=== PATIENT | female | born 1935 | race Caucasian/White ===

== ENCOUNTER 2017-01-17 10:34 | Inpatient (IN) ==
--- NOTE | 2017-01-17 10:43 | Emergency Department Note ---
Disposition Clinical Impression: Diplopia Disposition: Admitted As Inpatient Condition: Fair Referrals: Chris Quinteros MD [Primary Care Provider] - Forms: ED Satisfaction Letter Time of Disposition: 12:13 Neuro HPI - General Chief Complaint: ED Eye Problems Stated Complaint: Blurry Vision Time Seen by Provider: 01/17/17 10:36 Source: patient, EMS Mode of arrival: EMS Limitations: no limitations Nursing Notes Reviewed: Yes Vital Signs Reviewed: Yes - History of Present Illness HPI Narrative: 81-year-old who developed acute onset of double vision this morning. The patient states he takes a number of different medications every day. She denies any pain anywhere she denies any decreased vision is just that when she uses both eyes she has double vision. She covers each eye she does not have double vision. Onset of Symptoms Date: 01/17/17 Onset of Symptoms Time: 09:00 Timing confirmed by: caregiver Location: other History of same: No Severity: moderate Quality: other (Double vision) Symptoms Improving: No Improves with: none Worsens with: none Context: sudden onset On Anticoagulants: No Associated symptoms: Reports: denies other symptoms Treatments Prior to Arrival: none - Related Data Home Medications: Home Medications Medication Instructions Recorded Confirmed ALPRAZolam [Xanax 0.25 MG Tablet] 0.25 mg PO HS 01/17/17 01/17/17 Aspirin [Lo-Dose Aspirin EC] 81 mg PO DAILY 01/17/17 01/17/17 Atenolol [Tenormin] 25 mg PO DAILY 01/17/17 01/17/17 Diltiazem CD (24hr) [Cardizem CD] 120 mg PO QPM 01/17/17 01/17/17 Escitalopram [Lexapro] 10 mg PO DAILY 01/17/17 01/17/17 Furosemide [Lasix] 40 mg PO BID 01/17/17 01/17/17 HYDROcodone/Acet 5/325 mg [[place] 1 tab PO Q6H PRN 01/17/17 01/17/17 5-325 mg] Isosorbide MONOnitrate (24 HR) 30 mg PO DAILY 01/17/17 01/17/17 [Imdur] Omeprazole [PriLOSEC] 20 mg PO BIDAC 01/17/17 01/17/17 Oxybutynin [Ditropan] 5 mg PO TID 01/17/17 01/17/17 Potassium Chloride [Klor-Con 10] 10 meq PO BID 01/17/17 01/17/17 Sucralfate [Carafate] 1 gm PO BID 01/17/17 01/17/17 Warfarin [Coumadin] 4 mg PO DAILY 01/17/17 01/17/17 traZODone [TraZODone] 50 mg PO HS 01/17/17 01/17/17 Allergies/Adverse Reactions: Allergies Allergy/AdvReac Type Severity Reaction Status Date / Time Sulfa (Sulfonamide Allergy Blister Verified 01/17/17 12:53 Antibiotics) codeine AdvReac Hallucinati Verified 01/17/17 12:54 ng morphine AdvReac Hallucinati Verified 01/17/17 12:54 ng Oxycodone AdvReac Hallucinati Verified 01/17/17 12:53 ng Past Medical History - Past Medical History Medical history: Reports: arthritis (Osteoarthritis; DDD of lower back), atrial fibrillation (Paroxysmal atrial fibrillation; +Right Bundle Branch Block; Hx of Peptic Ulcer Disease), CHF, COPD (with home O2), coronary artery disease, GERD, hyperlipidemia, hypertension (+ Pulmonary Hypertension), myocardial infarction, 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 Patient's NIH stroke scale was 0. CT scans negative. Patient does have a hole in her heart is on Coumadin and also has a pacemaker and cannot have an MRI. Sedation obtained with neurology who recommends a CTA of the in head neck. Patient is not a TPA candidate is on Coumadin with an INR 1.7. Also patient does not meet TPA criteria based on NIH stroke scale. Time: 12:14 - Consultations Consultation #1: Discussed with carlos Cherry. Time: 13:09 Vital Signs Temperature 98.2 F 01/17/17 10:35 Pulse Rate 83 11/17/17 10:35 Respiratory Rate 20 01/17/17 10:35 Blood Pressure 136/80 01/17/17 10:35 O2 Sat by Pulse Oximetry 94 01/17/17 10:35 Temperature 98.2 F 01/17/17 10:35 Pulse Rate 81 01/17/17 12:23 Respiratory Rate 14 01/17/17 12:23 Blood Pressure 124/64 01/17/17 12:23 O2 Sat by Pulse Oximetry 92 01/17/17 12:23 Oxygen Delivery Oxygen Delivery Nasal Cannula Neuro Symptoms/Deficit - Lab Data Result diagrams: 01/17/17 10:47 01/17/17 10:47 Lab Results 01/17/17 01/17/17 01/17/17 Range/Units 10:47 10:47 10:47 WBC 6.4 (4.3-11.1) K/mcL RBC 4.34 (3.82-4.97) M/mcL Hgb 10.5 L (11.5-15.4) g/dL Hct 34.5 L (35.3-44.9) % MCV 79.5 L (83.0-100.0) fL MCH 24.2 L (28.0-33.3) pg MCHC 30.4 L (31.6-35.5) g/dL RDW 15.7 H (11.5-14.5) % Plt Count 272 (140-400) K/mcL MPV 8.4 L (9.4-12.4) fL Immature Gran % 0.5 (0-4) % Seg Neutrophils % 69.6 % Lymphocytes % 17.0 % Monocytes % 9.3 % Eosinophils % 2.7 % Basophils % 0.9 % Neutrophils # 4.4 (1.6-8.9) K/mcL Lymphocytes # 1.1 (0.6-4.6) K/mcL Monocytes # 0.6 (0.0-1.3) K/mcL Eosinophils # 0.2 (0.0-0.6) K/mcL Basophils # 0.1 (0.0-0.2) K/mcL PT 18.7 H (9.4-12.1) Seconds INR 1.7 APTT 33.9 (26.0-36.0) Seconds Sodium 138 (136-145) mEq/L Potassium 4.2 (3.5-4.5) mEq/L Chloride 103 (98-109) mEq/L Carbon Dioxide 27 (19-29) mEq/L BUN 17 (7-20) mg/dL Creatinine 0.83 (0.57-1.11) mg/dL Est GFR ( Amer) > 60 (> 60) Est GFR (Non-Af Amer) > 60 (> 60) BUN/Creatinine Ratio 20 (6-26) Glucose 110 H (70-99) mg/dL POC Glucose (58-89) Calculated Osmolality 288 (280-300) Calcium 9.5 (8.6-10.8) mg/dL Troponin I (0-0.03) ng/mL 01/17/17 01/17/17 Range/Units 10:47 10:48 WBC (4.3-11.1) K/mcL RBC (3.82-4.97) M/mcL Hgb (11.5-15.4) g/dL Hct (35.3-44.9) % MCV (83.0-100.0) fL MCH (28.0-33.3) pg MCHC (31.6-35.5) g/dL RDW (11.5-14.5) % Plt Count (140-400) K/mcL MPV (9.4-12.4) fL Immature Gran % (0-4) % Seg Neutrophils % % Lymphocytes % % Monocytes % % Eosinophils % % Basophils % % Neutrophils # (1.6-8.9) K/mcL Lymphocytes # (0.6-4.6) K/mcL Monocytes # (0.0-1.3) K/mcL Eosinophils # (0.0-0.6) K/mcL Basophils # (0.0-0.2) K/mcL PT (9.4-12.1) Seconds INR APTT (26.0-36.0) Seconds Sodium (136-145) mEq/L Potassium (3.5-4.5) mEq/L Chloride (98-109) mEq/L Carbon Dioxide (19-29) mEq/L BUN (7-20) mg/dL Creatinine (0.57-1.11) mg/dL Est GFR ( Amer) (> 60) Est GFR (Non-Af Amer) (> 60) BUN/Creatinine Ratio (6-26) Glucose (70-99) mg/dL POC Glucose 113 H (58-89) Calculated Osmolality (280-300) Calcium (8.6-10.8) mg/dL Troponin I 0.02 (0-0.03) ng/mL NIH Stroke Scale - Level of Consciousness LOC: Alert - LOC Questions LOC Questions: Answers both correctly - LOC Commands LOC Commands: Performs both correctly - Best Gaze Best Gaze: Normal - Visual Visual: No visual loss - Facial Palsy Facial Palsy: Normal - Motor Arms Motor Arm-Left: No drift for 10 seconds Motor Arm-Right: No drift for 10 seconds - Motor Legs Motor Leg-Left: No drift for 5 seconds Motor Leg-Right: No drift for 5 seconds - Limb Ataxia Limb Ataxia: Normal, No Ataxia - Sensory Sensory: Normal - Best Language Best Language: No aphasia - Dysarthria Dysarthria: Normal - Extinction and Inattention Extinction and Inattention: Normal - NIHSS Total Score NIHSS Total Score: 0 TPA Checklist - Eligibilty for IV tPA 1. LKW equal to or less than 4.5 hours be before treatment: Yes 2. Clinical diagnosis of ischemic stroke causing deficit: No 3. Age 18 years or older: Yes - Contraindications 4. Evidence of intracranial hemorrhage on pretreatment CT: No - LKW: 3-4.5 hrs Add. Warnings/Precautions Patient/family understanding: The patient/family members have been counseled and understood the risk, benefit , and alternatives of treatment.
[2017-01-17 10:56] LABS: Basophils # 0.1 K/mcL (0.0-0.2); Basophils % 0.9 %; Eosinophils # 0.2 K/mcL (0.0-0.6); Eosinophils % 2.7 %; Hematocrit 34.5 % (35.3-44.9); Hemoglobin 10.5 g/dL (11.5-15.4); Immature Granulocytes % 0.5 % (0-4); Lymphocytes # 1.1 K/mcL (0.6-4.6); Mean Corpuscular HGB Conc 30.4 g/dL (31.6-35.5); Mean Corpuscular Hemoglobin 24.2 pg (28.0-33.3); Mean Corpuscular Volume 79.5 fL (83.0-100.0); Mean Platelet Volume 8.4 fL (9.4-12.4); Monocytes # 0.6 K/mcL (0.0-1.3); Monocytes % 9.3 %; Neutrophils # 4.4 K/mcL (1.6-8.9); Platelet Count 272 K/mcL (140-400); Red Blood Count 4.34 M/mcL (3.82-4.97); Red Cell Distribution Width 15.7 % (11.5-14.5); Segmented Neutrophils % 69.6 %
[2017-01-17 11:03] LABS: INR 1.7; Prothrombin Time 18.7 Seconds (9.4-12.1)
[2017-01-17 11:05] LABS: Activated Partial Thrombo Time 33.9 Seconds (26.0-36.0)
[2017-01-17 11:09] LABS: BUN/Creatinine Ratio 20 (6-26); Blood Urea Nitrogen 17 mg/dL (7-20); Calcium 9.5 mg/dL (8.6-10.8); Carbon Dioxide 27 mEq/L (19-29); Chloride 103 mEq/L (98-109); Glucose 110 mg/dL (70-99); Osmolality,Calculated 288 (280-300); Potassium 4.2 mEq/L (3.5-4.5); Sodium 138 mEq/L (136-145); eGFR For African Americans > 60 (> 60); eGFR For Non-African Americans > 60 (> 60)
[2017-01-17] MEDS ORDERED: Naloxone 0.4 MG/ML INJ IVP PRN (14:49)
[2017-01-17] MEDS: Sucralfate 1 GM TABLET PO SCH (16:09)
[2017-01-17] MEDS: Furosemide 40 MG TABLET PO SCH (16:09)
[2017-01-17] MEDS: *HR* HYDROcodone/Acet 5/325 mg TABLET PO PRN (16:10)
--- NOTE | 2017-01-17 18:00 | Rheumatology Consult Note ---
Date of Encounter: 01/17/17 Time of Encounter: 17:15 Rheumatology Assess and Plan (1) Diplopia Current Visit: Yes Status: Acute This 81 year old female has a sudden onset of diplopia. CTA and CT of head reviewed, no mass lesions/vascular abnormalities identified. Exam of eyes with grossly normal EOM and pupil reactivity. Unable to complete fundoscopic exam. Sedimentation rate and CRP essentially normal for are. She lacks many of the associated conditions such as jaw claudication, headaches , temporal tenderness that are more suggestive of temporal arteritis though at this time there is no other obvious cause. Agree with neurology evaluation. I spoke with the primary Dr Toribio who has spoken to Dr. Resendiz who will complete a fundoscopic exam on Friday at his clinic. My recommendations at this time is that without another cause, temporal arteritis should be covered for with prednisone 60 mg po daily. Please contact vascular surgery for outpatient biopsy within next week if able. Will await ophtho exam on Friday. I will not be back in the hospital till Friday but will set up a visit next week in the clinic to further discuss. (2) Sedimentation rate elevation Current Visit: Yes Status: Acute Normal for age and may not be reliable for following disease if found to have inflammatory condition. (3) On prednisone therapy Current Visit: Yes Status: Acute Given anticoagulation, please continue gastric protection and pre parole counseling aide patient for signs of gastritis/melena/hematochezia. Rheumatology HPI Consult date: 01/17/17 Requesting physician: Stephanie Toribio Consult reason: Diplopia Chief complaint: Double vision History of present illness: Ms. Anderson is a 81 year old female with past medical history of coronary artery disease status post CABG,pacemaker, hyperlipidemia, osteoarthritis who presents to the emergency room with a sudden onset of diplopia. This patient states she is in her normal state of health until this morning at 8 :45 AM, she had a sudden onset of double vision. She states that when she is looking at objects they start moving back and forth and will see double. She states after not being able to see, she developed a dull headache that lasted for 2 hours and resolved; she does not normally suffer from headaches. She went to the emergency room, a CTA of head and neck was completed and overall normal. CT head without intracranial abnormalities; MR contraindicated due to cardiac devices. Up to this point, she has not suffered much from muscle aching in her shoulders , hips, headaches, scalp tenderness, tinnitus, hearing changes, tongue pain or throat burning. She has chronic coughing but nothing was new. She reports some new nosebleeds. Denies new paresthesias, no new rashes, no new oral ulcerations, no swollen or tender joints other than typical joint pain. Past Med Surg Social Fam HX - Past Medical History Medical history: arthritis, atrial fibrillation, CHF, COPD, coronary artery disease, GERD, hyperlipidemia, hypertension, myocardial infarction, thyroid disease, other Psychiatric history: depression - Past Surgical History Surgical History: angioplasty/stent, appendectomy, cholecystectomy, coronary bypass (CABG), hysterectomy, orthopedic, other, pacemaker/AICD, SOLEDAD/BSO - Social History Smoking Status: Former smoker Smokeless Tobacco Status: No Alcohol use: none Drug use: none - Family History Mother Living Status: Age at : 72 Hx Family Cardiac Disorders: Yes Father Living Status: Age at : 72 Hx Family Cardiac Disorders: Yes Hx Family Endocrine Disorder: Yes (DM) Medications and Allergies ALPRAZolam [Xanax 0.25 MG Tablet] 0.25 mg PO HS 01/17/17 [History] Aspirin [Lo-Dose Aspirin EC] 81 mg PO DAILY 01/17/17 [History] Atenolol [Tenormin] 25 mg PO DAILY 01/17/17 [History] Diltiazem CD (24hr) [Cardizem CD] 120 mg PO QPM 01/17/17 [History] Escitalopram [Lexapro] 10 mg PO DAILY 01/17/17 [History] Furosemide [Lasix] 40 mg PO BID 01/17/17 [History] HYDROcodone/Acet 5/325 mg [[place] 5-325 mg] 1 tab PO Q6H PRN 01/17/17 [History] Isosorbide MONOnitrate (24 HR) [Imdur] 30 mg PO DAILY 01/17/17 [History] Omeprazole [PriLOSEC] 20 mg PO BIDAC 01/17/17 [History] Oxybutynin [Ditropan] 5 mg PO TID 01/17/17 [History] Potassium Chloride [Klor-Con 10] 10 meq PO BID 01/17/17 [History] Sucralfate [Carafate] 1 gm PO BID 01/17/17 [History] Warfarin [Coumadin] 4 mg PO DAILY 01/17/17 [History] traZODone [TraZODone] 50 mg PO HS 01/17/17 [History] 3 Allergy/AdvReac Type Severity Reaction Status Date / Time Sulfa (Sulfonamide Allergy Blister Verified 01/17/17 12:53 Antibiotics) codeine AdvReac Hallucinati Verified 01/17/17 12:54 ng morphine AdvReac Hallucinati Verified 01/17/17 12:54 ng Oxycodone AdvReac Hallucinati Verified 01/17/17 12:53 ng All Systems Review: A 10-system review of systems was performed and is negative for pertinent findings except as documented above in the HPI. Review of Systems: General - no recent weight loss, weight gain, fatigue or fevers Eyes - no redness, loss of vision, + diplopia, no dryness/itching/foreign body sensation ENT - no dryness of mouth, oral ulcerations, nasal ulcerations, sore throat, frequent cavities, jaw claudication, tinnitus, or vertigo Cardiovascular - no chest pain, palpitations, lightheadedness, syncope or arm/ leg claudication Respiratory - no shortness of breath, difficulty breathing at night, pleuritic chest pain and no cough Gastrointestinal - no nausea, vomiting, diarrhea, bloating, black/tarry stools, blood in stools; + heartburn Genitourinary - no pain on urination, hematuria, frothy urine or ulcerations. Musculoskeletal - no morning stiffness, joint swelling, muscle aches, tendon/ ligament swelling or tenderness Integumentary - + bruising, rashes, hives, photosensitivity, skin thickening, alopecia, color changes of hands. Neurological - no muscle weakness or paresthesias Hematologic/lymphatic - no tender or swollen glands, history of anemia or blood clots Rheumatology Exam Vital Signs, Last 4 Hours Temp Pulse Resp BP Pulse Ox 01/17/17 15:03 97.7 F 89 16 132/74 99 01/17/17 14:46 18 128/69 Exam: General - Alert and oriented x 3, no acute distress and appears comfortable HEENT - Conjunctiva clear, no alopecia or hair thinning, no facial rash, no nasal or oral mucosal lesions/ulcerations. Left pupil slightly smaller than right. Both pupils reactive to light. Extraocular muscles are grossly intact without any pain with movement. She is not photosensitive to light. Heme/Lymph - No cervical or supraclavicular lymph node enlargement or tenderness. No pallor. Heart - S1S2 regular in rate and rhythm without murmurs, clicks or rubs. No peripheral edema. Radial pulses equal and strong. No subclavian bruits. Lungs - Unlabored breathing, clear to auscultation bilaterally without wheezes or crackles; no decrease in chest expansion Abdomen - Soft, nontender, nondistended. Unable to palpate any hepatosplenomegaly Skin - No clubbing, nodules, tophi, psoriasis, erythema, petichiae, malar rash, telangiectasias, sclerodactyly, nail pitting, onycholysis, digital ulcers Neurological - Gait normal, muscle strength 5/5 in all four extremities Musculoskeletal - Full ROM, no synovitis, no joint tenderness, no tenderness to palpation of spine; pes planus noted. Rheumatology Results 01/17/17 10:47 01/17/17 10:47 All other labs normal. Consult Discharge Plan - Plan Referrals: Chris Quinteros MD [Primary Care Provider] -
--- NOTE | 2017-01-17 18:02 | Internal Med History&Physical ---
Date of Encounter: 01/17/17 Time of Encounter: 18:00 Assessment and Plan (1) Diplopia Current visit: Yes Status: Acute Acute onset. CTA negative for evidence of ischemia (unable to perform MRI secondary to pacer). ESR and CRP elevated, although not markedly so. Consulted rheumatology and greatly appreciate the assistance with this case. Will start PO steroids and arrange for outpatient follow up with vascular surgery for temporal artery biopsy and evaluation by ophthalmology for possible microvascular insult as etiology for the diplopia. Neurology also consulted, appreciate assistance. - PO prednisone (2) CAD (coronary artery disease) Current visit: Yes Status: Acute Patient denies chest pain - Continue home meds Qualifiers: Coronary Disease-Associated Artery/Lesion type: bypass graft [place] vs. transplanted heart: [place] heart Associated angina: without angina Qualified Code(s): I25.810 - Atherosclerosis of coronary artery bypass graft(s) without angina pectoris (3) COPD (chronic obstructive pulmonary disease) Current visit: Yes Status: Acute Stable. - Continue home meds - Continue home O2 Qualifiers: COPD type: unspecified COPD Qualified Code(s): J44.9 - Chronic obstructive pulmonary disease, unspecified (4) Atrial fibrillation Current visit: Yes Status: Acute Rate controlled - Monitor on telemetry Qualifiers: Atrial fibrillation type: chronic Qualified Code(s): I48.2 - Chronic atrial fibrillation Internal Medicine - H&P: HPI Chief complaint: Diplopia Admitted From: Emergency Dept Plans for Post Hospital Care: Home History of present illness: Ms. Anderson is a 81 year old female with history of COPD on home O2, CAD s/p CABG, atrial fibrillation on coumadin, HTN, HLD who presented to the ED this morning with sudden onset diplopia which began around 0930 this morning. She states that she was feeling well until she suddenly noticed she was seeing double. The diplopia is vertical. She had a left temporal headache when I evaluated her in the ED. If she covers one eye her vision becomes normal. She states that she has chronic shoulder and hip pain, and chart review shows that she saw her PCP 2 days ago for worsening shoulder pain. She denies fever or chills. Past Med Surg Social Fam HX - Past Medical History Medical history: arthritis, atrial fibrillation, CHF, COPD, coronary artery disease, GERD, hyperlipidemia, hypertension, myocardial infarction, thyroid disease, other Psychiatric history: depression - Past Surgical History Surgical History: angioplasty/stent, appendectomy, cholecystectomy, coronary bypass (CABG), hysterectomy, orthopedic, other, pacemaker/AICD, SOLEDAD/BSO - Social History Smoking Status: Former smoker Smokeless Tobacco Status: No Alcohol use: none Drug use: none - Family History Mother Living Status: Age at : 72 Hx Family Cardiac Disorders: Yes Father Living Status: Age at : 72 Hx Family Cardiac Disorders: Yes Hx Family Endocrine Disorder: Yes (DM) Internal Medicine - H&P: Meds ALPRAZolam [Xanax 0.25 MG Tablet] 0.25 mg PO HS 01/17/17 [History] Aspirin [Lo-Dose Aspirin EC] 81 mg PO DAILY 01/17/17 [History] Atenolol [Tenormin] 25 mg PO DAILY 01/17/17 [History] Diltiazem CD (24hr) [Cardizem CD] 120 mg PO QPM 01/17/17 [History] Escitalopram [Lexapro] 10 mg PO DAILY 01/17/17 [History] Furosemide [Lasix] 40 mg PO BID 01/17/17 [History] HYDROcodone/Acet 5/325 mg [[place] 5-325 mg] 1 tab PO Q6H PRN 01/17/17 [History] Isosorbide MONOnitrate (24 HR) [Imdur] 30 mg PO DAILY 01/17/17 [History] Omeprazole [PriLOSEC] 20 mg PO BIDAC 01/17/17 [History] Oxybutynin [Ditropan] 5 mg PO TID 01/17/17 [History] Potassium Chloride [Klor-Con 10] 10 meq PO BID 01/17/17 [History] Sucralfate [Carafate] 1 gm PO BID 01/17/17 [History] Warfarin [Coumadin] 4 mg PO DAILY 01/17/17 [History] traZODone [TraZODone] 50 mg PO HS 01/17/17 [History] 3 Allergy/AdvReac Type Severity Reaction Status Date / Time Sulfa (Sulfonamide Allergy Blister Verified 01/17/17 12:53 Antibiotics) codeine AdvReac Hallucinati Verified 01/17/17 12:54 ng morphine AdvReac Hallucinati Verified 01/17/17 12:54 ng Oxycodone AdvReac Hallucinati Verified 01/17/17 12:53 ng All Systems PM: A 10-system review of systems was performed and is negative for pertinent findings except as documented above in the HPI. - Constitutional Vitals: Temp Pulse Resp BP Pulse Ox 97.7 F 89 16 132/74 99 01/17/17 15:03 01/17/17 15:03 01/17/17 15:03 01/17/17 15:03 01/17/17 15:03 General appearance: Present: cooperative, A&O X 3, no acute distress - Head Head exam: Present: atraumatic - Eye Eye exam: Present: EOMI, sclera anicteric Pupils: Present: unequal (left pupil 2mm, right pupil 3mm, both reactive) - ENT ENT exam: Present: mucous membranes moist - Neck Neck exam general surgery: Present: supple - Respiratory Respiratory exam: Present: CTAB - Cardiovascular Cardiovascular exam: Present: RRR. Absent: diastolic murmur, gallop, rubs, systolic murmur - GI/Abdominal GI/Abdominal exam: Present: normal bowel sounds, soft. Absent: distended, tenderness - Extremities Exam Extremities exam: Absent: pedal edema - Neurological Exam Neurological exam: Present: no focal deficits - Skin Skin exam: Absent: rash Internal Med - H&P Results - Labs CBC & Chem 7: 01/17/17 10:47 01/17/17 10:47 Labs: Cardiac Enzymes 01/17/17 Range/Units 15:06 Troponin I 0.02 (0-0.03) ng/mL
[2017-01-17] MEDS ORDERED: predniSONE 20 MG TABLET PO SCH (18:15)
[2017-01-17] MEDS: Diltiazem CD (24hr) 120 MG CAPSULE PO SCH (20:22)
[2017-01-17] MEDS: ALPRAZolam 0.25 MG TABLET PO SCH (20:23)
[2017-01-17] MEDS ORDERED: *HR* Warfarin 4 MG TABLET PO ONE (22:40)
[2017-01-17] MEDS: predniSONE 20 MG TABLET PO SCH (23:02)
[2017-01-18 03:37] LABS: INR 1.7; Prothrombin Time 18.7 Seconds (9.4-12.1)
[2017-01-18 03:38] LABS: Basophils % 0.3 %; Eosinophils % 0.4 %; Hematocrit 34.8 % (35.3-44.9); Hemoglobin 10.8 g/dL (11.5-15.4); Immature Granulocytes % 0.3 % (0-4); Lymphocytes # 0.6 K/mcL (0.6-4.6); Lymphocytes % 8.3 %; Mean Corpuscular Hemoglobin 24.3 pg (28.0-33.3); Mean Corpuscular Volume 78.2 fL (83.0-100.0); Monocytes # 0.1 K/mcL (0.0-1.3); Monocytes % 1.9 %; Neutrophils # 6.6 K/mcL (1.6-8.9); Platelet Count 263 K/mcL (140-400); Red Blood Count 4.45 M/mcL (3.82-4.97); Red Cell Distribution Width 15.7 % (11.5-14.5); Segmented Neutrophils % 88.8 %
[2017-01-18 04:00] LABS: BUN/Creatinine Ratio 17 (6-26); Blood Urea Nitrogen 15 mg/dL (7-20); Calcium 9.2 mg/dL (8.6-10.8); Carbon Dioxide 25 mEq/L (19-29); Chloride 104 mEq/L (98-109); Chol/HDL Ratio 4.1 (0-4.9); Cholesterol 202 mg/dL (< 200); Glucose 142 mg/dL (70-99); HDL Cholesterol 49 mg/dL (40-59); LDL Cholesterol,Calculated 130 mg/dL (0-99); Osmolality,Calculated 287 (280-300); Potassium 3.9 mEq/L (3.5-4.5); Sodium 137 mEq/L (136-145); Triglycerides 117 mg/dL (< 150); eGFR For African Americans > 60 (> 60); eGFR For Non-African Americans > 60 (> 60)
--- NOTE | 2017-01-18 08:22 | Internal Med Progress Note ---
Date of Encounter: 01/18/17 Time of Encounter: 08:20 - Assessment and plan (1) Diplopia Current Visit: Yes Status: Acute Assessment and plan: Possible temporal arteritis was considered, possible TIA ESR was 36, and 5% of the cases of temporal arteritis ESR may be less than 40 Prednisone 60 mg daily was recommended by rheumatology until having a temporal artery biopsy next week as an outpatient Dr Toribio who has spoken to Dr. Resendiz who will complete a fundoscopic exam on Friday at his clinic. Will contact vascular surgery for outpatient biopsy within next week. Will await ophtho exam on Friday. Follow-up with rheumatology Neurology has been consulted Continue aspirin CT angiogram of the neck and had: The major arteries of the head and neck are within normal limits. Mild prominence of the main pulmonary artery size, may be related to mild pulmonary hypertension. (2) Sedimentation rate elevation Current Visit: Yes Status: Acute (3) On prednisone therapy Current Visit: Yes Status: Acute (4) CAD (coronary artery disease) Current Visit: Yes Status: Acute Assessment and plan: Continue atenolol and aspirin Qualifiers: Coronary Disease-Associated Artery/Lesion type: bypass graft [place] vs. transplanted heart: [place] heart Associated angina: without angina Qualified Code(s): I25.810 - Atherosclerosis of coronary artery bypass graft(s) without angina pectoris (5) COPD (chronic obstructive pulmonary disease) Current Visit: Yes Status: Acute Qualifiers: COPD type: unspecified COPD Qualified Code(s): J44.9 - Chronic obstructive pulmonary disease, unspecified (6) Atrial fibrillation Current Visit: Yes Status: Acute Assessment and plan: INR not therapeutic, start Lovenox until INR is more than 2 due to possible TIA Order echocardiogram Qualifiers: Atrial fibrillation type: chronic Qualified Code(s): I48.2 - Chronic atrial fibrillation - Subjective Interval history: The patient was complaining of diplopia yesterday that started in the morning and results at night. She did complain of mild headaches. No fever, no chest pain or shortness of breath, no abdominal pain or dysuria - Constitutional Vitals: Temp Pulse Resp BP Pulse Ox 97.9 F 76 16 116/71 98 01/18/17 07:45 01/18/17 07:45 01/18/17 07:45 01/18/17 07:45 01/18/17 07:45 General appearance: Present: cooperative, A&O X 3, no acute distress - Head Head exam: Present: atraumatic, normocephalic - Eye Eye exam: Present: PERRL, conjuntiva pink, sclera anicteric Pupils: Present: PERRL - Neck Neck exam general surgery: Present: supple, trachea midline. Absent: lymphadenopathy - Respiratory Respiratory exam: Present: CTAB. Absent: accessory muscle use, rales, rhonchi, wheezes - Cardiovascular Cardiovascular exam: Present: RRR, +S1, +S2. Absent: diastolic murmur, gallop, rubs, systolic murmur - GI/Abdominal GI/Abdominal exam: Present: normal bowel sounds, soft, no peritoneal signs. Absent: distended, tenderness - Extremities Exam Extremities exam: Present: warm, radial pulses palpable and symmetrical. Absent : calf tenderness, cyanotic, pedal edema - Neurological Exam Neurological exam: Present: CN II-XII intact, oriented X3, no focal deficits. Absent: pronater drift, facial droop, speech deficit - Skin Skin exam: Present: dry, intact Internal Medicine: Result - Labs CBC & Chem 7: 01/18/17 03:12 01/18/17 03:12 Labs: Short CBC 01/18/17 Range/Units 03:12 WBC 7.4 (4.3-11.1) K/mcL Hgb 10.8 L (11.5-15.4) g/dL Hct 34.8 L (35.3-44.9) % Plt Count 263 (140-400) K/mcL Neutrophils # 6.6 (1.6-8.9) K/mcL BMP 01/18/17 03:12 Sodium 137 Potassium 3.9 Chloride 104 Carbon Dioxide 25 BUN 15 Creatinine 0.88 Glucose 142 H Calcium 9.2 Cardiac Enzymes 01/17/17 01/18/17 Range/Units 20:43 03:12 Troponin I 0.02 0.02 (0-0.03) ng/mL - ABG Interpretation ABG results: PT/INR, D-dimer PT 18.7 Seconds (9.4-12.1) H 01/18/17 03:12 Consult Discharge Plan - Plan Referrals: Chris Quinteros MD [Primary Care Provider] -
[2017-01-18] MEDS: Aspirin 81 MG TAB.CHEW PO SCH (08:30)
[2017-01-18] MEDS: Furosemide 40 MG TABLET PO SCH ×2 (08:31→17:13)
[2017-01-18] MEDS: Isosorbide MONOnitrate (24 HR) 30 MG TAB.ER.24H PO SCH (08:31)
[2017-01-18] MEDS: Sucralfate 1 GM TABLET PO SCH ×2 (08:31→15:24)
[2017-01-18] MEDS: predniSONE 20 MG TABLET PO SCH (08:31)
[2017-01-18] MEDS: *HR* Enoxaparin 80 MG/0.8 ML SYRINGE SQ SCH ×2 (10:27→17:13)
[2017-01-18] MEDS: *HR* HYDROcodone/Acet 5/325 mg TABLET PO PRN ×2 (10:28→17:13)
--- NOTE | 2017-01-18 12:04 | Neurology - Consult Note ---
Date of Encounter: 01/18/17 Time of Encounter: 09:40 Assessment and Plan (1) Diplopia Current Visit: Yes Status: Acute This patient who was admitted with the episode of diplopia that lasted about 2 hours and then resolved spontaneously along with some mild frontal headaches that has resolved now. She already had a CT angiogram of the head and neck that was reported negative for any critical stenosis at the same time there is no evidence of any changes to be concern of vasculitis. Patient did have mildly elevated ESR, there was a concern that her symptoms could be due to temporal arteritis but at the moment she did not had any associated findings that is commonly seen with it including jaw claudication, headaches, temporal tenderness that could be suggestive of temporal arteritis At the same time there is not tenderness in the temporal area and headache is also not typical. On the other hand double vision is not pathognomonic of temporal arteritis either. In fact anything that could have a similar presentation would be a TIA and dysphagia and for that reason I would recommend that she should be on antiplatelet therapy. As far as commitment to any long-term steroid therapy with the remote possibility of temporal arteritis should be dealt carefully, because of the long -term side effect of steroid in this age group, and this time I do not see any typical clinical presentation that because of temporal arteritis especially she did not have any headaches neither had any tenderness in the temporal area and her presentation was double vision, which is very less likely associated with temporal arteritis. From neurology standpoint patient is stable she did not have any focal motor deficit do not think that she would require any physical therapy I would recommend echocardiogram for any embolic source, CT angiogram of the neck is negative for any carotid stenosis or any vertebral stenosis (2) Frontal headache Current Visit: Yes Status: Acute pt has a history of mild chronic muscle contraction tension-type of the headaches predominantly in the frontal area that has been resolved now again she did not have any temporal headaches or any migrainous headache as per history History of Present Illness HPI: Ms. Anderson is a 81 year old female past medical history of coronary artery disease status post CABG,pacemaker, hyperlipidemia, osteoarthritis who presents to the emergency room with a sudden onset of double vision, This patient states she is in her normal state of health until this morning at 8:45 AM, she had a sudden onset of double vision. She states that when she is looking at objects they start moving back and forth and will see double. he symptoms lasted for 2 hours and resolved; She went to the emergency room, a CTA of head and neck was completed and overall normal. CT head without intracranial abnormalities; she denies any muscle aching in her shoulders, hips , headaches, scalp tenderness, tinnitus, hearing changes, tongue pain or throat burning. She has chronic coughing but nothing was new. Denies new paresthesias , no new rashes, no new oral ulcerations, no swollen or tender joints other than typical joint pain. According to the patient she has an history of headaches and frequent dull headaches predominantly in her forehead area and sometimes in the top of the head she denies any focal motor weakness or any vision changes now Past Med Surg Social Fam HX - Past Medical History Medical history: arthritis, atrial fibrillation, CHF, COPD, coronary artery disease, GERD, hyperlipidemia, hypertension, myocardial infarction, thyroid disease, other Psychiatric history: depression - Past Surgical History Surgical History: angioplasty/stent, appendectomy, cholecystectomy, coronary bypass (CABG), hysterectomy, orthopedic, other, pacemaker/AICD, SOLEDAD/BSO - Social History Smoking Status: Former smoker Smokeless Tobacco Status: No Alcohol use: none Drug use: none - Family History Mother Living Status: Age at : 72 Hx Family Cardiac Disorders: Yes Father Living Status: Age at : 72 Hx Family Cardiac Disorders: Yes Hx Family Endocrine Disorder: Yes (DM) Medications and Allergies ALPRAZolam [Xanax 0.25 MG Tablet] 0.25 mg PO HS 01/17/17 [History] Aspirin [Lo-Dose Aspirin EC] 81 mg PO DAILY 01/17/17 [History] Atenolol [Tenormin] 25 mg PO DAILY 01/17/17 [History] Diltiazem CD (24hr) [Cardizem CD] 120 mg PO QPM 01/17/17 [History] Escitalopram [Lexapro] 10 mg PO DAILY 01/17/17 [History] Furosemide [Lasix] 40 mg PO BID 01/17/17 [History] HYDROcodone/Acet 5/325 mg [[place] 5-325 mg] 1 tab PO Q6H PRN 01/17/17 [History] Isosorbide MONOnitrate (24 HR) [Imdur] 30 mg PO DAILY 01/17/17 [History] Omeprazole [PriLOSEC] 20 mg PO BIDAC 01/17/17 [History] Oxybutynin [Ditropan] 5 mg PO TID 01/17/17 [History] Potassium Chloride [Klor-Con 10] 10 meq PO BID 01/17/17 [History] Sucralfate [Carafate] 1 gm PO BID 01/17/17 [History] Warfarin [Coumadin] 4 mg PO DAILY 01/17/17 [History] traZODone [TraZODone] 50 mg PO HS 01/17/17 [History] 3 Allergy/AdvReac Type Severity Reaction Status Date / Time Sulfa (Sulfonamide Allergy Blister Verified 01/17/17 12:53 Antibiotics) codeine AdvReac Hallucinati Verified 01/17/17 12:54 ng morphine AdvReac Hallucinati Verified 01/17/17 12:54 ng Oxycodone AdvReac Hallucinati Verified 01/17/17 12:53 ng All Systems: A 10-system review of systems was performed and is negative for pertinent findings except as documented above in the HPI. Physical Examination - Vital Signs Vital Signs: Initial Vital Signs Temp Pulse Resp BP Pulse Ox 98.2 F 83 20 136/80 94 01/17/17 10:35 01/17/17 10:35 01/17/17 10:35 01/17/17 10:35 01/17/17 10:35 - Neurologic Detailed motor examination: full strength in all major muscle groups Motor examination - right side: 5/5: deltoids, biceps, triceps, wrist flexion, wrist extension, dry cleaner, hip flexors, tibialis Anterior, quadriceps, toe extension (EHL), plantarflexion Motor examination - left side: 5/5: deltoids, biceps, triceps, wrist flexion, wrist extension, hip flexors, dry cleaner, quadriceps, tibialis Anterior, toe extension (EHL), plantarflexion Mental Status Examination: awake, alert, oriented to person, oriented to place, oriented to time, follows commands appropriately, answers questions appropriately, no agnosia, no aphasia, no aproxia Cranial nerve examination: PERRL, EOMI, visual hernandes intact, corneal reflexes brisk symmetrically, sensory to face intact, mastication intact, no facial asymmetry is present, no dysarthria, hearing is intact symmetrically, soft palate elevates bilaterally upon phonation, gag reflex intact, flexes SCM and trapezius muscles symmetrically with full power, tongue protrudes midline, no atrophy or facial fasiculations present Cerebellar examination: no dysmetria, performs finger to nose and heel to ortiz symmetrically without ataxia, no gait ataxia, no truncal ataxia, no difficulty with rapid alternating movements Results - Laboratory Findings CBC and BMP: 01/18/17 03:12 01/18/17 03:12 Abnormal lab findings: Abnormal lab results Hgb 10.8 g/dL (11.5-15.4) L 01/18/17 03:12 Hct 34.8 % (35.3-44.9) L 01/18/17 03:12 MCV 78.2 fL (83.0-100.0) L 01/18/17 03:12 MCH 24.3 pg (28.0-33.3) L 01/18/17 03:12 MCHC 31.0 g/dL (31.6-35.5) L 01/18/17 03:12 RDW 15.7 % (11.5-14.5) H 01/18/17 03:12 MPV 9.0 fL (9.4-12.4) L 01/18/17 03:12 ESR 36 mm/hr (0-15) H 01/17/17 10:47 PT 18.7 Seconds (9.4-12.1) H 01/18/17 03:12 Glucose 142 mg/dL (70-99) H 01/18/17 03:12 POC Glucose 113 (58-89) H 01/17/17 10:48 C-Reactive Protein 6 mg/L (Less than 5) H 01/17/17 10:47 Cholesterol 202 mg/dL (< 200) H 01/18/17 03:12 LDL Cholesterol, Calc 130 mg/dL (0-99) H 01/18/17 03:12 - Diagnostic Findings Additional findings: CT angiogram of the head and neck were reported as negative for any critical stenosis and no evidence of any stroke Consult Discharge Plan - Plan Referrals: Chris Quinteros MD [Primary Care Provider] - (appointment has been webrequested; Our Offices will call you with an update on date and time. Thank You.)
[2017-01-18] MEDS: *HR* Warfarin 4 MG TABLET PO SCH (17:13)
[2017-01-18] MEDS: Diltiazem CD (24hr) 120 MG CAPSULE PO SCH (20:22)
[2017-01-18] MEDS: ALPRAZolam 0.25 MG TABLET PO SCH (20:22)
[2017-01-19] MEDS: traZODone 50 MG TABLET PO PRN ×2 (02:11→20:16)
[2017-01-19 04:28] LABS: INR 2.2; Prothrombin Time 24.3 Seconds (9.4-12.1)
[2017-01-19] MEDS: *HR* Enoxaparin 80 MG/0.8 ML SYRINGE SQ SCH (06:15)
--- NOTE | 2017-01-19 08:19 | Discharge Summary ---
Date of Encounter: 01/19/17 Time of Encounter: 08:17 - Discharge Diagnosis (1) Diplopia Priority: Primary Status: Acute Comments: Possible temporal arteritis was considered, possible TIA (most likely the cause) (2) Sedimentation rate elevation Priority: Secondary Status: Acute (3) On prednisone therapy Priority: Secondary Status: Acute (4) CAD (coronary artery disease) Priority: Secondary Status: Acute Qualifiers: Coronary Disease-Associated Artery/Lesion type: bypass graft [place] vs. transplanted heart: [place] heart Associated angina: without angina Qualified Code(s): I25.810 - Atherosclerosis of coronary artery bypass graft(s) without angina pectoris (5) COPD (chronic obstructive pulmonary disease) Priority: Secondary Status: Acute Qualifiers: COPD type: unspecified COPD Qualified Code(s): J44.9 - Chronic obstructive pulmonary disease, unspecified (6) Atrial fibrillation Priority: Secondary Status: Acute Qualifiers: Atrial fibrillation type: chronic Qualified Code(s): I48.2 - Chronic atrial fibrillation - Discharge Medications Prescriptions: predniSONE [PredniSONE] 60 mg PO DAILY 42 Days tablet Home Medications: ALPRAZolam [Xanax 0.25 MG Tablet] 0.25 mg PO HS 01/17/17 [History] Aspirin [Lo-Dose Aspirin EC] 81 mg PO DAILY 01/17/17 [History] Atenolol [Tenormin] 25 mg PO DAILY 01/17/17 [History] Diltiazem CD (24hr) [Cardizem CD] 120 mg PO QPM 01/17/17 [History] Escitalopram [Lexapro] 10 mg PO DAILY 01/17/17 [History] Furosemide [Lasix] 40 mg PO BID 01/17/17 [History] HYDROcodone/Acet 5/325 mg [[place] 5-325 mg] 1 tab PO Q6H PRN 01/17/17 [History] Isosorbide MONOnitrate (24 HR) [Imdur] 30 mg PO DAILY 01/17/17 [History] Omeprazole [PriLOSEC] 20 mg PO BIDAC 01/17/17 [History] Oxybutynin [Ditropan] 5 mg PO TID 01/17/17 [History] Potassium Chloride [Klor-Con 10] 10 meq PO BID 01/17/17 [History] Sucralfate [Carafate] 1 gm PO BID 01/17/17 [History] Warfarin [Coumadin] 4 mg PO DAILY 01/17/17 [History] traZODone [TraZODone] 50 mg PO HS 01/17/17 [History] predniSONE [PredniSONE] 60 mg PO DAILY 42 Days tablet 01/19/17 [Rx] Allergies/Adverse Reactions: 3 Allergy/AdvReac Type Severity Reaction Status Date / Time Sulfa (Sulfonamide Allergy Blister Verified 01/17/17 12:53 Antibiotics) codeine AdvReac Hallucinati Verified 01/17/17 12:54 ng morphine AdvReac Hallucinati Verified 01/17/17 12:54 ng Oxycodone AdvReac Hallucinati Verified 01/17/17 12:53 ng Procedures/tests Complete & Pending: Procedures Performed prior 72 hours Category Date Time Status EV echocardiogram Routine Y 01/18/17 08:25 Ordered Date of admission: 01/17/17 19:25 Primary care physician: Chris Quinteros MD - Patient Status Disposition: Home, Self-Care Condition: Good Overall status at discharge: patient is back to baseline - Discharge Instructions Follow Up With: Chris Quinteros MD [Primary Care Provider] - (appointment has been webrequested; Our Offices will call you with an update on date and time. Thank You.) Additional Instructions: Follow-up with primary care physician within the next 7 days. Continue Coumadin and aspirin. Follow-up with neurology within the next 2 weeks. Schedule a temporal artery biopsy this week with Dr. Meyer's office - Diet and Activity Activity: increase activity as tolerated Diet: low fat, low cholesterol Hospital course: Ms. Anderson is a 81 year old female with history of COPD on home O2, CAD s/p CABG, atrial fibrillation on coumadin, prior echocardiogram from November 2015 shows a possible evidence of a PFO with agitated saline contrast, pacemaker, HTN, HLD , diastolic CHF with moderate tricuspid regurgitation, COPD not oxygen dependent , GERD, hypothyroidism, who presented to the ED with sudden onset of diplopia which began around 0930 on the morning of admission. She stated that she was feeling well until she suddenly noticed she was seeing double. The diplopia was vertical. She had a left temporal headache. Was evaluated by rheumatology ESR was 36, and 5% of the cases of temporal arteritis ESR may be less than 40 Was evaluated by rheumatology. Prednisone 60 mg daily was recommended by rheumatology until having a temporal artery biopsy next week as an outpatient Dr. Resendiz will complete a fundoscopic exam on Friday at his clinic. Contact vascular surgery/Dr Meyer's office for outpatient biopsy within this week. Follow-up with rheumatology Neurology was consulted and was recommended to continue antiplatelet therapy and Coumadin. Continue aspirin INR was 1.7 for which the patient was started on Lovenox, today her INR is 2.2. The patient's symptoms resolved after 12 hours and is back to her baseline. CT angiogram of the neck and had: The major arteries of the head and neck are within normal limits. Mild prominence of the main pulmonary artery size, may be related to mild pulmonary hypertension. Echocardiogram - Time Spent with Patient Total time spent providing and/or coordinating discharge services: Greater than 30 minutes (40 min) - Constitutional Vitals: Temp Pulse Resp BP Pulse Ox 98.3 F 63 16 93/53 98 01/19/17 07:23 01/19/17 07:23 01/19/17 07:23 01/19/17 07:23 01/19/17 07:23 General appearance: Present: cooperative, A&O X 3, no acute distress - Head Head exam: Present: atraumatic, normocephalic - Eye Eye exam: Present: PERRL, conjuntiva pink, sclera anicteric Pupils: Present: PERRL - Neck Neck exam general surgery: Present: supple, trachea midline. Absent: lymphadenopathy - Respiratory Respiratory exam: Present: CTAB. Absent: accessory muscle use, rales, rhonchi, wheezes - Cardiovascular Cardiovascular exam: Present: RRR, +S1, +S2. Absent: diastolic murmur, gallop, rubs, systolic murmur - GI/Abdominal GI/Abdominal exam: Present: normal bowel sounds, soft, no peritoneal signs. Absent: distended, tenderness - Extremities Exam Extremities exam: Present: warm, radial pulses palpable and symmetrical. Absent : calf tenderness, cyanotic, pedal edema - Neurological Exam Neurological exam: Present: CN II-XII intact, oriented X3, no focal deficits. Absent: pronater drift, facial droop, speech deficit - Skin Skin exam: Present: dry, intact
[2017-01-19] MEDS: predniSONE 20 MG TABLET PO SCH (08:56)
[2017-01-19] MEDS: Aspirin 81 MG TAB.CHEW PO SCH (08:56)
[2017-01-19] MEDS: Sucralfate 1 GM TABLET PO SCH ×2 (08:56→15:11)
[2017-01-19] MEDS: Isosorbide MONOnitrate (24 HR) 30 MG TAB.ER.24H PO SCH (08:57)
[2017-01-19] MEDS: Furosemide 40 MG TABLET PO SCH ×2 (08:57→17:13)
--- NOTE | 2017-01-19 11:05 | Internal Med Progress Note ---
Date of Encounter: 01/19/17 Time of Encounter: 11:03 - Assessment and plan (1) Diplopia Current Visit: Yes Status: Acute Assessment and plan: Possible temporal arteritis was considered, possible TIA related to PFO cardiology consult, RADHAMES, venous duplex of lower extremities ESR was 36, and 5% of the cases of temporal arteritis ESR may be less than 40 Prednisone 60 mg daily was recommended by rheumatology until having a temporal artery biopsy next week as an outpatient Dr Toribio who has spoken to Dr. Resendiz who will complete a fundoscopic exam on Friday at his clinic. Will contact vascular surgery for outpatient biopsy within next week. Will await ophtho exam on Friday. Follow-up with rheumatology Neurology has been consulted aspirin Cannot have an MRI due to pacemaker CT angiogram of the neck and had: The major arteries of the head and neck are within normal limits. Mild prominence of the main pulmonary artery size, may be related to mild pulmonary hypertension. (2) Sedimentation rate elevation Current Visit: Yes Status: Acute (3) On prednisone therapy Current Visit: Yes Status: Acute (4) CAD (coronary artery disease) Current Visit: Yes Status: Acute Assessment and plan: Continue atenolol and aspirin Qualifiers: Coronary Disease-Associated Artery/Lesion type: bypass graft [place] vs. transplanted heart: [place] heart Associated angina: without angina Qualified Code(s): I25.810 - Atherosclerosis of coronary artery bypass graft(s) without angina pectoris (5) COPD (chronic obstructive pulmonary disease) Current Visit: Yes Status: Acute Qualifiers: COPD type: unspecified COPD Qualified Code(s): J44.9 - Chronic obstructive pulmonary disease, unspecified (6) Atrial fibrillation Current Visit: Yes Status: Acute Assessment and plan: INR not therapeutic, discontinue Lovenox as INR is more than 2 Ordered echocardiogram Qualifiers: Atrial fibrillation type: chronic Qualified Code(s): I48.2 - Chronic atrial fibrillation - Subjective Interval history: Not complaining of diplopia anymore, very somnolent. She did complain of mild headaches. No fever, no chest pain or shortness of breath, no abdominal pain or dysuria - Constitutional Vitals: Temp Pulse Resp BP Pulse Ox 97.6 F 80 16 107/66 98 01/19/17 10:58 01/19/17 10:58 01/19/17 10:58 01/19/17 10:58 01/19/17 10:58 General appearance: Present: cooperative, A&O X 3, no acute distress - Head Head exam: Present: atraumatic, normocephalic - Eye Eye exam: Present: PERRL, conjuntiva pink, sclera anicteric Pupils: Present: PERRL - Neck Neck exam general surgery: Present: supple, trachea midline. Absent: lymphadenopathy - Respiratory Respiratory exam: Present: CTAB. Absent: accessory muscle use, rales, rhonchi, wheezes - Cardiovascular Cardiovascular exam: Present: RRR, +S1, +S2. Absent: diastolic murmur, gallop, rubs, systolic murmur - GI/Abdominal GI/Abdominal exam: Present: normal bowel sounds, soft, no peritoneal signs. Absent: distended, tenderness - Extremities Exam Extremities exam: Present: warm, radial pulses palpable and symmetrical. Absent : calf tenderness, cyanotic, pedal edema - Neurological Exam Neurological exam: Present: CN II-XII intact, oriented X3, no focal deficits. Absent: pronater drift, facial droop, speech deficit - Skin Skin exam: Present: dry, intact Internal Medicine: Result - Labs CBC & Chem 7: 01/18/17 03:12 01/18/17 03:12 - ABG Interpretation ABG results: PT/INR, D-dimer PT 24.3 Seconds (9.4-12.1) H 01/19/17 04:09 Consult Discharge Plan - Plan Additional Instructions: Follow-up with primary care physician within the next 7 days. Continue Coumadin and aspirin. Follow-up with neurology within the next 2 weeks. Schedule a temporal artery biopsy this week with Dr. Meyer's office Referrals: Edward Meyer MD [Partnered Physician] - (Please call office on Friday to schedule follow up appointment.) Chris Quinteros MD [Primary Care Provider] - (appointment has been webrequested; Our Offices will call you with an update on date and time. Thank You.) Prescriptions: predniSONE [PredniSONE] 60 mg PO DAILY 42 Days tablet
[2017-01-19] MEDS: *HR* HYDROcodone/Acet 5/325 mg TABLET PO PRN (13:39)
[2017-01-19] MEDS: *HR* Warfarin 4 MG TABLET PO SCH (17:13)
[2017-01-19] MEDS: Diltiazem CD (24hr) 120 MG CAPSULE PO SCH (20:16)
[2017-01-19] MEDS: ALPRAZolam 0.25 MG TABLET PO SCH (20:16)
[2017-01-20] MEDS: *HR* HYDROcodone/Acet 5/325 mg TABLET PO PRN ×2 (00:51→10:41)
[2017-01-20 08:05] LABS: INR 2.2; Prothrombin Time 24.2 Seconds (9.4-12.1)
--- NOTE | 2017-01-20 08:05 | Rheumatology Progress Note ---
Date of Encounter: 01/20/17 Time of Encounter: 08:00 Rheumatology Assess and Plan (1) Diplopia Current Visit: Yes Status: Acute This 81 year old female has a sudden onset of diplopia no resolved. CTA and CT of head reviewed, no mass lesions/vascular abnormalities identified. TTE with PFO and patient was subtherapeutic on coumadin on Admission. She has had a neurology evaluation in which TIA was most likely suspected. Optho exam pending outpatient. Sedimentation rate and CRP essentially normal for age. At my initial evaluation, I did not have the evaluations and information readily available to find a more likely cause so patient was covered with prednisone and temporal artery biopsy. After reviewing the information in the chart and the patient's symptoms being solely diplopia with an essentially normal ESR/CRP, the likelihood of this being giant cell arteritis is low. I discussed the workup and treatment along with all of the information gathered with the patient. We have decided to stop prednisone, hold the temporal artery biopsy. She will see cardiology today, ophthalmology as an outpatient and I will see her in 2 weeks in clinic. I discussed the case with the hospitalist. (2) Sedimentation rate elevation Current Visit: Yes Status: Acute Essentially normal for age. - Subjective Interval history: Patient seen and examined. Reports she feels well and back to her baseline. Her double vision and unsteadiness resolved after 12 hours of symptoms. Today, she states no headache, no jaw pain, no tongue burning, no throat pain, no visual changes. No chest pain, no shortness of breath. ROS otherwise negative. Exam Vital Signs, Last 4 Hours Temp Pulse Resp BP Pulse Ox 01/20/17 07:18 98.0 F 79 16 130/73 97 Exam: General - Alert and oriented x 3, no acute distress Pysch - Oriented to person, place and time Eyes - Conjunctiva clear, EOMFI Heart - S1S2 RRR without murmurs, radial pulses equal Lungs - Anterior exam, clear to auscultation bilaterally Objective Data 01/18/17 03:12 01/18/17 03:12 All other labs normal. Consult Discharge Plan - Plan Additional Instructions: Follow-up with primary care physician within the next 7 days. Continue Coumadin and aspirin. Follow-up with neurology within the next 2 weeks. Schedule a temporal artery biopsy this week with Dr. Meyer's office Referrals: Edward Meyer MD [Partnered Physician] - (Please call office on Friday to schedule follow up appointment.) Chris Quinteros MD [Primary Care Provider] - (appointment has been webrequested; Our Offices will call you with an update on date and time. Thank You.) Prescriptions: predniSONE [PredniSONE] 60 mg PO DAILY 42 Days tablet
--- NOTE | 2017-01-20 09:39 | Cardiology Consult Note ---
<Gabriel Ortiz - Last Filed: 01/20/17 12:08> Date of Encounter: 01/20/17 Time of Encounter: 08:30 Assessment and Plan (1) TIA (transient ischemic attack) Current Visit: Yes Status: Suspected Diplopia likely secondary to suspected thromboembolic event Patient has known Afib on ASA and Coumadin, was subtherapeutic at time of admission with INR 1.7 TTE 01/19/17 Demonstrates PFO, LVEF 55% with LA Size 4.4cm, RSVP 36 mmH2O No evidence of Left to right shunt, RoPE Score 3, indicating extremely unlikely that source is PFO We will order a RADHAMES for further evaluation, patient should remain NPO at midnight. [id number] 9, anticoagulation is recommended. Patient has had event while on coumadin, consider transition to Pradaxa Qualifiers: Transient cerebral ischemia type: other Qualified Code(s): G45.8 - Other transient cerebral ischemic attacks and related syndromes (2) Atrial fibrillation Current Visit: No Status: Chronic Atrial fibrillation, on coumadin and rate controlled Currently in Sinus rhythm, rate controlled with Diltiazem, atenolol We will interrogate her pacer for abnormalities or rapid heart rate [id number] 9, anticoagulation is recommended. Patient has had event while on coumadin, consider transition to Pradaxa Qualifiers: Atrial fibrillation type: paroxysmal Qualified Code(s): I48.0 - Paroxysmal atrial fibrillation (3) CAD (coronary artery disease) Current Visit: Yes Status: Chronic CAD s/p CABG in 1985 and Stent placement at unknown date Patient continues to have exertional angina for which she takes nitroglycerin up to once a month She is increasingly limited in ADLs, and struggles particularly with stairs Date of last stress test is unclear, patient cannot recall if or when she had one Currently treated with ASA, Atenolol, Diltiazem, Imdur. We will add moderate intensity statin if there are no contraindications Qualifiers: Coronary Disease-Associated Artery/Lesion type: bypass graft [place] vs. transplanted heart: [place] heart Associated angina: with stable angina Qualified Code(s): I25.708 - Atherosclerosis of coronary artery bypass graft(s) , unspecified, with other forms of angina pectoris Discussion w patient/family: The assessment and plan as outlined above was discussed with the patient and/or family members who expressed understanding and agreement. All questions were answered. Thank you for involving us in the care of your patient. Please call with any questions. History of Present Illness Consult date: 01/19/17 Requesting physician: Hilton Ulrich Consult reason: TIA in setting of PFO Chief complaint: Blurry vision History of present illness: Ms. Anderson is a 81 year old female with history of COPD on Home O2, CAD s/p CABG 1985 and more recent Stent, AFib on coumadin, Pacemaker, HTN and HLD who presented to the ED Wednesday 01/17 due to blurry/double vision. She says that she woke up that morning and noticed that she was struggling to find the zipper on her purse because her vision was blurred. She quickly noticed that her vision seemed to be doubled, and that the problem was corrected upon covering one eye at a time. Prior to this time, she was in a normal state of health without problems. Associated with these symptoms, the patient complained of a dull headache which was global, and resolved after a few hours. She says that the double vision lasted for approximately 12 hours and then resolved completely. She denies any experience similar to this one in the past, and states that she has never had strokes, seizures, migraines, or any other acute neurological episode to her knowledge. She further denies any recent illness, travel, calf pain, chest pain. Significantly, the patient admits to trouble sleeping recently, for which her PCP placed her on Trazodone, which she started the night before onset of her symptoms. When questioned, the patient also admits to increased dyspnea on exertion and chest discomfort on exertion, for which she requires 1-2 nitroglycerin about 1 time per month. She does not know when her last stress test was, or if she has had one at all. Following admission, the patient underwent TTE which demonstrated LVEF 55%, Indeterminate diastolic function, mild pulmonary HTN and PFO on agitated saline contrast which was is consistent with previously documented PFO on TTE 11/27/15. CTA of the Head and Neck demonstrated not acute abnormalities in the arterial vasculature, however cardiomegaly with dilatation of the pulmonary arteries was noted, consistent with the mild pulmonary HTN found on TTE. INR was found to be subtherapeutic at 1.7, which has since elevated to therapeutic range of 2.2 for two days. [id number] score 9. Past Med Surg Social Fam HX - Past Medical History Medical history: arthritis, atrial fibrillation, CHF, COPD, coronary artery disease, GERD, hyperlipidemia, hypertension, myocardial infarction, thyroid disease, other Psychiatric history: depression - Past Surgical History Surgical History: angioplasty/stent, appendectomy, cholecystectomy, coronary bypass (CABG), hysterectomy, orthopedic, other, pacemaker/AICD, SOLEDAD/BSO - Social History Smoking Status: Former smoker Smokeless Tobacco Status: No Alcohol use: none Drug use: none - Family History Mother Living Status: Age at : 72 Hx Family Cardiac Disorders: Yes Father Living Status: Age at : 72 Hx Family Cardiac Disorders: Yes Hx Family Endocrine Disorder: Yes (DM) Medications and Allergies ALPRAZolam [Xanax 0.25 MG Tablet] 0.25 mg PO HS 01/17/17 [History] Aspirin [Lo-Dose Aspirin EC] 81 mg PO DAILY 01/17/17 [History] Atenolol [Tenormin] 25 mg PO DAILY 01/17/17 [History] Diltiazem CD (24hr) [Cardizem CD] 120 mg PO QPM 01/17/17 [History] Escitalopram [Lexapro] 10 mg PO DAILY 01/17/17 [History] Furosemide [Lasix] 40 mg PO BID 01/17/17 [History] HYDROcodone/Acet 5/325 mg [[place] 5-325 mg] 1 tab PO Q6H PRN 01/17/17 [History] Isosorbide MONOnitrate (24 HR) [Imdur] 30 mg PO DAILY 01/17/17 [History] Omeprazole [PriLOSEC] 20 mg PO BIDAC 01/17/17 [History] Oxybutynin [Ditropan] 5 mg PO TID 01/17/17 [History] Potassium Chloride [Klor-Con 10] 10 meq PO BID 01/17/17 [History] Sucralfate [Carafate] 1 gm PO BID 01/17/17 [History] Warfarin [Coumadin] 4 mg PO DAILY 01/17/17 [History] traZODone [TraZODone] 50 mg PO HS 01/17/17 [History] predniSONE [PredniSONE] 60 mg PO DAILY 42 Days tablet 01/19/17 [Rx] Dabigatran [Pradaxa] 150 mg PO BID #60 capsule 01/20/17 [Rx] 3 Allergy/AdvReac Type Severity Reaction Status Date / Time Sulfa (Sulfonamide Allergy Blister Verified 01/17/17 12:53 Antibiotics) codeine AdvReac Hallucinati Verified 01/17/17 12:54 ng morphine AdvReac Hallucinati Verified 01/17/17 12:54 ng Oxycodone AdvReac Hallucinati Verified 01/17/17 12:53 ng - Constitutional Constitutional: headache(s) (For about 2 hours during acute visual changes), no anorexia, no fatigue, no fever(s), no lethargy, no night sweats - EENT Eyes: blurred vision Nose, mouth and throat: no sinus pain - Cardiovascular Cardiovascular: dyspnea on exertion, irregular heart rhythm, palpitations ( occasional, associated with exertion), no chest pain at rest, no chest pain with exertion, no claudication, no syncope - Respiratory Respiratory: no cough, no dyspnea, no hemoptysis - Gastrointestinal Gastrointestinal: no nausea - Musculoskeletal Musculoskeletal: no abnormal gait, no muscle cramps, no muscle weakness - Integumentary Integumentary: no rash - Neurological Neurological: loss of vision (As per HPI), no abnormal speech, no dizziness, no memory loss, no numbness, no syncope - Psychiatric Psychiatric: no anxiety, no depression, no hallucinations - Hematological/Lymphatic Hematologic/Lymphatic: easy bruising (On Coumadin) Physical Examination Vital Signs, Last 4 Hours Temp Pulse Resp BP Pulse Ox 01/20/17 07:18 98.0 F 79 16 130/73 97 General: Conversant, No Apparent Distress HEENT: Atraumatic, Normocephaly, Mucus Membranes Moist Neck: No JVD, Normal carotid pulses Cardiac: Reg Rate and Rhythm, Normal S1 and S2, No Murmur Lungs: Normal Breath Sounds, No Wheeze, Rales, Rhonchi Neuro: Alert and responsive, No focal deficits noted Abdomen: Soft, Non-Tender Skin: No rashes noted on visualized skin Musculoskeletal: No Chest Wall Tenderness Extremities: No Clubbing, No Cyanosis, No Edema, Normal Pulses Results 01/18/17 03:12 01/18/17 03:12 Lab Results 01/20/17 07:51 INR 2.2 Consult Discharge Plan - Plan Additional Instructions: Follow-up with primary care physician within the next 7 days. Continue Coumadin and aspirin. Follow-up with neurology within the next 2 weeks. Schedule a temporal artery biopsy this week with Dr. Meyer's office Referrals: Edward Meyer MD [Partnered Physician] - (Please call office on Friday to schedule follow up appointment.) Chris Quinteros MD [Primary Care Provider] - (appointment has been webrequested; Our Offices will call you with an update on date and time. Thank You.) Justus Fontaine DO [Partnered Physician] - 02/03/17 3:45 pm Prescriptions: Dabigatran [Pradaxa] 150 mg PO BID #60 capsule predniSONE [PredniSONE] 60 mg PO DAILY 42 Days tablet <Vinnie De Oliveira - Last Filed: 01/20/17 13:43> Date of Encounter: 01/20/17 - Attending Attestation I examined this patient and my medical decision-making was reviewed with the Resident Physician. I agree with the documented findings, disposition and treatment plan as described except to the ext IMP: 1. Transient blurred vision, occured at rest, came and went spontaneously, has resolved, no reoccurrence with this hospitalization, strongly suggestive of TIA 2. Chronic persistent A fib with usually controlled ventricular response, warfarin for primary stroke risk reduction, sub therapeutic with admission INR 1.6, may be etiology of possible embolic source. Would not resume Warfarin, consider Pradaxa or Eliquis at discharge, will [place] compare for best resource management. 3. Class 11 Angina with recent (last month) decreased exercise tolerance, hx chest pain, STEMI before bypass, recurrent ischemia one year ago, with recent increase in sub lingual ntg use, now requiring 2 sl NTG for pain relief, will order Adenosine Cardiolyte stress imaging to eval ischemic substrate. 4. CAD - severe three vessel CAD, post CABG in 1985, x 3, with reported PCI with YADIRA unknown vessel approximately one year ago. 5. Sedation secondary to Trazadone, pt just started medication the day before event, unlikely to have caused visual disturbance, however would discontinue, 6. Hypertension - controlled on current meds 7. Sick Sinus syndrome - with pacemaker, will interrogate, eval for rapid ventricular response, Thank you for allowing us to participate in her care, will follow with you with additional recs pending pacer check and cardiac imaging. Assessment and Plan Discussion w patient/family: The assessment and plan as outlined above was discussed with the patient and/or family members who expressed understanding and agreement. All questions were answered. Thank you for involving us in the care of your patient. Please call with any questions. History of Present Illness History of present illness: Ms. Anderson is a 81 year old female All Systems Review: A 10-system review of systems was performed and is negative for pertinent findings except as documented above in the HPI. Physical Examination Vital Signs, Last 4 Hours Temp Pulse Resp BP Pulse Ox 01/20/17 11:41 97.4 F L 56 16 108/70 93 Results 01/18/17 03:12 01/18/17 03:12 Lab Results 01/20/17 07:51 INR 2.2
[2017-01-20] MEDS: Furosemide 40 MG TABLET PO SCH ×2 (10:33→16:44)
[2017-01-20] MEDS: Sucralfate 1 GM TABLET PO SCH ×2 (10:33→14:48)
[2017-01-20] MEDS: Aspirin 81 MG TAB.CHEW PO SCH (10:33)
[2017-01-20] MEDS: Isosorbide MONOnitrate (24 HR) 30 MG TAB.ER.24H PO SCH (10:33)
--- NOTE | 2017-01-20 15:27 | Internal Med Progress Note ---
Date of Encounter: 01/20/17 Time of Encounter: 15:25 - Assessment and plan (1) Diplopia Current Visit: Yes Status: Acute Assessment and plan: possible TIA related to PFO Unlikely temporal artertis continue anticoagulation with warfarin( therapeutic now) cardiology consulted and recommended a RADHAMES, venous duplex of lower extremities was negative for DVT ESR was 36, and 5% of the cases of temporal arteritis ESR may be less than 40 Discontinue Prednisone , cancel temporal artery biopsy as outpatient Dr Toribio who has spoken to Dr. Resendiz who will complete a fundoscopic at his clinic. Follow-up with rheumatology Neurology has been consulted aspirin Cannot have an MRI due to pacemaker CT angiogram of the neck and had: The major arteries of the head and neck are within normal limits. Mild prominence of the main pulmonary artery size, may be related to mild pulmonary hypertension. (2) Sedimentation rate elevation Current Visit: Yes Status: Acute (3) On prednisone therapy Current Visit: Yes Status: Acute (4) CAD (coronary artery disease) Current Visit: Yes Status: Chronic Assessment and plan: Continue atenolol and aspirin (5) COPD (chronic obstructive pulmonary disease) Current Visit: Yes Status: Acute Qualifiers: COPD type: unspecified COPD Qualified Code(s): J44.9 - Chronic obstructive pulmonary disease, unspecified (6) Atrial fibrillation Current Visit: No Status: Chronic Assessment and plan: INR not therapeutic, discontinued Lovenox as INR was more than 2 echocardiogram confirmed PFO Qualifiers: Atrial fibrillation type: paroxysmal Qualified Code(s): I48.0 - Paroxysmal atrial fibrillation - Subjective Interval history: Feeling fine. Not complaining of diplopia anymore, very somnolent. She did complain of mild headaches. No fever, no chest pain or shortness of breath, no abdominal pain or dysuria - Constitutional Vitals: Temp Pulse Resp BP Pulse Ox 97.4 F L 56 16 108/70 93 01/20/17 11:41 01/20/17 11:41 01/20/17 11:41 01/20/17 11:41 01/20/17 11:41 General appearance: Present: cooperative, A&O X 3, no acute distress - Head Head exam: Present: atraumatic, normocephalic - Eye Eye exam: Present: PERRL, conjuntiva pink, sclera anicteric Pupils: Present: PERRL - Neck Neck exam general surgery: Present: supple, trachea midline. Absent: lymphadenopathy - Respiratory Respiratory exam: Present: CTAB. Absent: accessory muscle use, rales, rhonchi, wheezes - Cardiovascular Cardiovascular exam: Present: RRR, +S1, +S2. Absent: diastolic murmur, gallop, rubs, systolic murmur - GI/Abdominal GI/Abdominal exam: Present: normal bowel sounds, soft, no peritoneal signs. Absent: distended, tenderness - Extremities Exam Extremities exam: Present: warm, radial pulses palpable and symmetrical. Absent : calf tenderness, cyanotic, pedal edema - Neurological Exam Neurological exam: Present: CN II-XII intact, oriented X3, no focal deficits. Absent: pronater drift, facial droop, speech deficit - Skin Skin exam: Present: dry, intact Internal Medicine: Result - Labs CBC & Chem 7: 01/18/17 03:12 01/18/17 03:12 - ABG Interpretation ABG results: PT/INR, D-dimer PT 24.2 Seconds (9.4-12.1) H 01/20/17 07:51 - Impressions Impressions Echocardiogram 01/19/17 08:25 Impressions: LVEF 55%. Indeterminate diastolic function. Atypical septal motion consistent with post-operative status. Dilated RV with normal function. Mild aortic regurgitation. Mild-moderate tricuspid regurgitation. Mild pulmonary hypertension. PFO is present with saline contrast injection. Left Ventricular Wall Motion: Rest Echo Findings All wall segments showed normal motion. Findings: Study Quality * Technically adequate exam. ECG Findings * Normal sinus rhythm. Left Ventricle * LVEF 55%. * Indeterminate diastolic function. * Atypical septal motion consistent with post-operative status. * Normal LV size and wall thickness. Right Ventricle * Dilated RV with normal function. Left Atrium * Moderately dilated left atrium. Right Atrium * Severely dilated right atrium. Aortic Valve * No aortic stenosis. * Mild aortic regurgitation. * Trileaflet aortic valve. Mitral Valve * Trace mitral regurgitation. * Normal mitral valve structure. * No mitral stenosis. Tricuspid Valve * Tricuspid valve not well visualized. * Mild-moderate tricuspid regurgitation. * Estimated RA pressure is 3 mmHg. * Estimated RVSP is 36 mmHg. * Mild pulmonary hypertension. Pulmonic Valve * Pulmonic valve is not well visualized. * No pulmonic stenosis. * No pulmonic regurgitation. Pulmonary Artery * Pulmonary artery not well visualized. Aorta * Normally sized aortic root. Pericardium * There is no pericardial effusion present. Device lead * A device lead was visualized in the right atrium and right ventricle. Interatrial Septum * There is a PFO by agitated saline contrast, IVC * Normal IVC dimensions and inspiratory collapse. Consult Discharge Plan - Plan Additional Instructions: Follow-up with primary care physician within the next 7 days. Continue Coumadin and aspirin. Follow-up with neurology within the next 2 weeks. Schedule a temporal artery biopsy this week with Dr. Meyer's office Referrals: Edward Meyer MD [Partnered Physician] - (Please call office on Friday to schedule follow up appointment.) Chris Quinteros MD [Primary Care Provider] - (appointment has been webrequested; Our Offices will call you with an update on date and time. Thank You.) Justus Fontaine DO [Partnered Physician] - 02/03/17 3:45 pm Prescriptions: Dabigatran [Pradaxa] 150 mg PO BID #60 capsule predniSONE [PredniSONE] 60 mg PO DAILY 42 Days tablet
[2017-01-20] MEDS: *HR* Warfarin 4 MG TABLET PO SCH (16:44)
[2017-01-20] MEDS: Diltiazem CD (24hr) 120 MG CAPSULE PO SCH (16:45)
[2017-01-20] MEDS: ALPRAZolam 0.25 MG TABLET PO SCH (21:05)
[2017-01-20] MEDS: traZODone 50 MG TABLET PO PRN (22:37)
[2017-01-21 03:34] LABS: INR 2.1; Prothrombin Time 23.3 Seconds (9.4-12.1)
[2017-01-21] MEDS ORDERED: Regadenoson 0.4 MG/5 ML SYRINGE IVP ONE (05:44)
--- NOTE | 2017-01-21 10:36 | Cardiology Progress Note ---
<Gabriel Ortiz - Last Filed: 01/22/17 08:07> Date of Encounter: 01/22/17 Time of Encounter: 10:35 Assessment and Plan (1) TIA (transient ischemic attack) Current Visit: Yes Status: Suspected Diplopia likely secondary to suspected thromboembolic event Patient has known Afib on ASA and Coumadin, was subtherapeutic at time of admission with INR 1.7 TTE 01/19/17 Demonstrates PFO, LVEF 55% with LA Size 4.4cm, RSVP 36 mmH2O No evidence of Left to right shunt, RoPE Score 3, indicating extremely unlikely that source is PFO [id number], anticoagulation is recommended. Patient has had event while on coumadin RADHAMES demonstrates small PFO, Left Atrial appendage not well visualized. Nuclear stress negative for ischemic changes Recommend discontinue Coumadin, start pradaxa at time of discharge. PA Pending Continue ASA, Statin Cardiology signs off. Please reconsult for any further questions. Qualifiers: Transient cerebral ischemia type: other Qualified Code(s): G45.8 - Other transient cerebral ischemic attacks and related syndromes (2) Atrial fibrillation Current Visit: No Status: Chronic Atrial fibrillation, on coumadin and rate controlled Currently in Sinus rhythm, rate controlled with Diltiazem, atenolol Pacer interrogation showed runs of afib without RVR [id number], anticoagulation is recommended. Patient has had event while on coumadin, Pradaxa PA in progress Qualifiers: Atrial fibrillation type: paroxysmal Qualified Code(s): I48.0 - Paroxysmal atrial fibrillation (3) CAD (coronary artery disease) Current Visit: Yes Status: Chronic CAD s/p CABG in 1985 and Stent placement at unknown date Patient continues to have exertional angina for which she takes nitroglycerin up to once a month She is increasingly limited in ADLs, and struggles particularly with stairs Nuclear stress test demonstrates no ischemic changes, LVEF 60% Currently treated with ASA, Atenolol, Diltiazem, Imdur. Add mod intensity statin Qualifiers: Coronary Disease-Associated Artery/Lesion type: bypass graft [place] vs. transplanted heart: [place] heart Associated angina: with stable angina Qualified Code(s): I25.708 - Atherosclerosis of coronary artery bypass graft(s) , unspecified, with other forms of angina pectoris Discussion w patient/family: The assessment and plan as outlined above was discussed with the patient and/or family members who expressed understanding and agreement. All questions were answered. Thank you for involving us in the care of your patient. Please call with any questions. Subjective Principal diagnosis: TIA Objective Vital Signs, Last 4 Hours Temp Pulse Resp BP Pulse Ox 01/21/17 10:11 99 01/21/17 10:06 97.8 F 76 16 119/76 98 Results 01/18/17 03:12 01/18/17 03:12 Lab Results 01/21/17 02:49 INR 2.1 Consult Discharge Plan - Plan Instructions: Dabigatran (By mouth) Additional Instructions: Follow-up with primary care physician within the next 7 days. Take your Pradaxa as directed. Return to the ER as needed for any other problems or concerns. REturn to your normal activities and diet as tolerated. Resume your other home medications. Follow-up appointments: If there is not an appointment listed below, please call your physician and schedule a follow-up appointment. If you have congestive heart failure and your symptoms return, make an appointment with your physician. Medication List: Carry an up to date list of medications you are taking at all time. We have given you an updated medication list including any new medications that you have been prescribed. Please provide that list to your primary provider Symptoms: If your condition changes or you experience any of the following symptoms, notify your physician immediately: Unusual or worsening pain, fever, persistent nausea and vomiting, bleeding, increase in swelling (especially in your legs), sudden weight gain, extreme dizziness, chest pain, increased drainage or redness from a wound or incision. Go to the emergency department if you experience a problem with breathing. Weights: If you have a history of swelling or shortness of breath, weigh yourself daily and notify your physician if you have a weight gain of two or more pounds in one day or 5 or more pounds in a week. If you experience any of the warning signs for stroke: Sudden numbness or weakness of the face, arm or leg; especially on one side of the body, sudden confusion, trouble speaking or understanding, sudden trouble seeing in one or both eyes, sudden trouble walking, dizziness, loss of balance or coordination, sudden sever headache with no cause; Call 911 or go to the emergency room. Stroke is a medical emergency. Some risk factors for stroke: Age, cigarette smoking, diabetes, excessive alcohol consumption, family history , high blood pressure, overweight, physical inactivity, prior stroke, heart attack, diagnosis of carotid artery stenosis or other artery disease. If you smoke, STOP: Smoking or tobacco use significantly increases your risk of heart and lung disease. Your chance of disease greatly increases if you continue to smoke. For more information, call the [place] tobacco quit line for smoking cessation QUIT-NOW ( ) Referrals: Edward Meyer MD [Partnered Physician] - (Please call office on Friday to schedule follow up appointment.) Chris Quinteros MD [Primary Care Provider] - 01/28/17 12:00 pm (appointment has been webrequested; Our Offices will call you with an update on date and time. Thank You.) Justus Fontaine DO [Partnered Physician] - 02/03/17 3:45 pm Prescriptions: Dabigatran [Pradaxa] 150 mg PO BID #60 capsule <Vinnie De Oliveira - Last Filed: 01/22/17 16:12> Date of Encounter: 01/22/17 Assessment and Plan (1) TIA (transient ischemic attack) Current Visit: Yes Status: Suspected Diplopia likely secondary to suspected thromboembolic event Patient has known Afib on ASA and Coumadin, was subtherapeutic at time of admission with INR 1.7 TTE 01/19/17 Demonstrates PFO, LVEF 55% with LA Size 4.4cm, RSVP 36 mmH2O No evidence of Left to right shunt, RoPE Score 3, indicating extremely unlikely that source is PFO [id number], anticoagulation is recommended. Patient has had event while on coumadin RADHAMES demonstrates small PFO, Left Atrial appendage not well visualized. Nuclear stress negative for ischemic changes Recommend discontinue Coumadin, start pradaxa at time of discharge. PA Pending Continue ASA, Statin Cardiology signs off. Please reconsult for any further questions. I examined this patient and my medical decision-making was reviewed with the Resident Physician. I agree with the documented findings, disposition and treatment plan as described except to the extent set forth below. 1. Atrial fib - in and out of sinus rhythm, a fib with RVR, ventricular response rate controlled on diltiazem and atenolol, start Pradaxa for primary stroke risk reduction, will continue to follow as outpatient. 2. CAD - severe three vessel CAD, post CABG, stress imaging negative for reversible ischemia, EF well maintained at 60%. 3. TIA, neurologic symptoms have resolved, very unlikely due to PFO, much more likely has had thromboembolic event from left atrium, continue systemic anticoagulation on Pradaxa 150 mg bid. Qualifiers: Transient cerebral ischemia type: other Qualified Code(s): G45.8 - Other transient cerebral ischemic attacks and related syndromes Discussion w patient/family: The assessment and plan as outlined above was discussed with the patient and/or family members who expressed understanding and agreement. All questions were answered. Thank you for involving us in the care of your patient. Please call with any questions. Results 01/18/17 03:12 01/18/17 03:12 Lab Results 01/22/17 02:55 INR 1.9
[2017-01-21] MEDS ORDERED: Lidocaine Viscous Oral Soln 15 ML SOLUTION MM PRN (10:46)
[2017-01-21] MEDS ORDERED: *HR* FentaNYL (PF) 100 MCG/2 ML VIAL IVP PRN (10:46)
[2017-01-21] MEDS ORDERED: 0.9 % Sodium Chloride 500 ML IVC ONE (10:47)
[2017-01-21] MEDS ORDERED: Tetracaine/Benzocaine/Butamben 200MG/SPRAY (100SPY/BOT) MM ONE (10:47)
[2017-01-21] MEDS ORDERED: *HR* Midazolam HCl 5 MG/5 ML VIAL IVP PRN (10:47)
[2017-01-21] MEDS: Isosorbide MONOnitrate (24 HR) 30 MG TAB.ER.24H PO SCH (13:09)
[2017-01-21] MEDS: Aspirin 81 MG TAB.CHEW PO SCH (13:09)
[2017-01-21] MEDS: Sucralfate 1 GM TABLET PO SCH ×2 (13:13→15:43)
[2017-01-21] MEDS: Furosemide 40 MG TABLET PO SCH ×2 (13:13→15:43)
--- NOTE | 2017-01-21 16:22 | Internal Med Progress Note ---
Date of Encounter: 01/21/17 Time of Encounter: 16:00 - Assessment and plan (1) Diplopia Current Visit: Yes Status: Acute Assessment and plan: Possible TIA related to PFO Unlikely temporal artertis Patient reports episode of diplopia that lasted about 12 hours and resolved spontaneously. She has had none since that time. Continue anticoagulation with warfarin( therapeutic now), changing to Pradaxa in the a.m. if INR is less than 2.0. RADHAMES completed today,LVEF 55%, normal systolic function, PFO with evidence of rlight to left shunt, no left to right shunt noted. Mild MR, mild AR, mild- moderate TR. Venous duplex of lower extremities was negative for DVT CT angiogram of the neck and had: The major arteries of the head and neck are within normal limits. Mild prominence of the main pulmonary artery size, may be related to mild pulmonary hypertension. Cannot have an MRI due to pacemaker. ESR was 36, and 5% of the cases of temporal arteritis ESR may be less than 40 Discontinue Prednisone , cancel temporal artery biopsy as outpatient Dr Toribio who has spoken to Dr. Resendiz who will complete a fundoscopic examination at his clinic. Follow-up with rheumatology, Dr. Ambriz. Neurology has been consulted. They saw the patient and recommended echocardiogram, which was completed, results above. CTA of the neck was negative for any carotid stenosis or vertebral stenosis. They do not feel that she has temporal arteritis and that long-term effect of steroids in this age group was something to consider. They have signed off and did not recommend any kind of physical therapy and did not notice any focal motor deficits. Patient was seen by cardiology. They also concur that the diplopia was likely secondary to suspected thromboembolic event. They feel the patient should be changed to Pradaxa from Coumadin since she had an event while on Coumadin. Her stress test is negative, RADHAMES demonstrate a small PFO with left atrial appendage not well visualized. Patient also has history of A. fib. Will continue his work accident, stop Coumadin. Patient currently is in sinus rhythm, rate controlled with diltiazem and beta brandt. She had her pacemaker interrogated , showed runs of A. fib with RVR. Patient has past medical history of CAD with a CABG in 1985 and stent that time. Patient continues to have exertional angina and increasingly limited in ADLs, has increasingly difficult time with stairs. In addition to the aspirin, beta brandt, diltiazem, and Imdur, cardiology has recommended adding a moderate intensity statin. (2) Sedimentation rate elevation Current Visit: Yes Status: Acute (3) On prednisone therapy Current Visit: Yes Status: Resolved Assessment and plan: Prednisone has been stopped per recommendation of neurology. (4) CAD (coronary artery disease) Current Visit: Yes Status: Chronic Assessment and plan: Continue atenolol and aspirin. He is also on diltiazem and Imdur. Statin has been added by cardiology. Patient denies chest pain. She has normal sinus. She has had her pacemaker interrogated showed runs of A. fib without RVR. Qualifiers: Coronary Disease-Associated Artery/Lesion type: bypass graft [place] vs. transplanted heart: [place] heart Associated angina: with stable angina Qualified Code(s): I25.708 - Atherosclerosis of coronary artery bypass graft(s) , unspecified, with other forms of angina pectoris (5) COPD (chronic obstructive pulmonary disease) Current Visit: Yes Status: Acute Assessment and plan: No acute exacerbation. Patient has her baseline oxygen demand of 2 L. May titrate to maintain sats greater than 92%. Lungs are clear with adequate aeration throughout. Continue home medications. Qualifiers: COPD type: unspecified COPD Qualified Code(s): J44.9 - Chronic obstructive pulmonary disease, unspecified (6) Atrial fibrillation Current Visit: No Status: Chronic Assessment and plan: Patient with history of A. fib. She is normal sinus rhythm. She is rate controlled with diltiazem and atenolol. Pacemaker was interrogated, she has runs of A. fib without /RVR. Patient has been on Coumadin, INR is therapeutic at 2.1. We are changing her to Pradaxa due to thromboembolic event while on Coumadin. Qualifiers: Atrial fibrillation type: paroxysmal Qualified Code(s): I48.0 - Paroxysmal atrial fibrillation (7) DVT prophylaxis Current Visit: Yes Status: Acute Assessment and plan: Pt on Warfarin, INR therapeutic at 2.1. Will convert pt to Pradaxa when INR < 2.0. - Time Spent With Patient less than 15 minutes - Subjective Interval history: Pt was seen and assessed at bedside at 1600. Pt is alert, pleasant, oriented and denies chest pain. She also denies diplopia since the incident that brought her here. Pt is agreeable to staying for change from Warfarin to Pradaxa. First dose ordered for tomorrow am if INR is less than 2.0. Pt denies headache, n/v/d , abdominal pain, dizziness, lightheadedness, or SOB. Denies unsteady gait. Pt reports that her daughter is trying to get her home healthcare and that she normally wears 2L 02 continuous at home, as well as has a walker. - Constitutional Vitals: Temp Pulse Resp BP Pulse Ox 98.1 F 71 16 98/55 98 01/21/17 14:52 01/21/17 14:52 01/21/17 14:52 01/21/17 14:52 01/21/17 14:52 General appearance: Present: cooperative, A&O X 3, no acute distress, answers questions appropriately - Head Head exam: Present: atraumatic, normal inspection, normocephalic - Eye Eye exam: Present: normal appearance, conjuntiva pink, sclera anicteric - Neck Neck exam general surgery: Present: normal inspection, supple, trachea midline. Absent: lymphadenopathy, tenderness - Respiratory Respiratory exam: Present: CTAB. Absent: accessory muscle use, rales, rhonchi, wheezes - Cardiovascular Cardiovascular exam: Present: RRR, +S1, +S2. Absent: bradycardia, diastolic murmur, gallop, irregular rhythm, rubs, systolic murmur, tachycardia - GI/Abdominal GI/Abdominal exam: Present: normal bowel sounds, soft, no peritoneal signs. Absent: distended, hepatomegaly, tenderness - Extremities Exam Extremities exam: Present: normal capillary refill, normal inspection, warm, radial pulses palpable and symmetrical. Absent: calf tenderness, cyanotic, pedal edema, tenderness - Neurological Exam Neurological exam: Present: alert, oriented X3, no focal deficits. Absent: altered, facial droop, speech deficit - Skin Skin exam: Present: dry, intact, normal color, warm. Absent: rash Internal Medicine: Result - Labs CBC & Chem 7: 01/18/17 03:12 01/18/17 03:12 - ABG Interpretation ABG results: PT/INR, D-dimer PT 23.3 Seconds (9.4-12.1) H 01/21/17 02:49 Consult Discharge Plan - Plan Additional Instructions: Follow-up with primary care physician within the next 7 days. Continue Coumadin and aspirin. Follow-up with neurology within the next 2 weeks. Schedule a temporal artery biopsy this week with Dr. Meyer's office Referrals: Edward Meyer MD [Partnered Physician] - (Please call office on Friday to schedule follow up appointment.) Chris Quinteros MD [Primary Care Provider] - (appointment has been webrequested; Our Offices will call you with an update on date and time. Thank You.) Justus Fontaine DO [Partnered Physician] - 02/03/17 3:45 pm Prescriptions: Dabigatran [Pradaxa] 150 mg PO BID #60 capsule predniSONE [PredniSONE] 60 mg PO DAILY 42 Days tablet
[2017-01-21] MEDS: Diltiazem CD (24hr) 120 MG CAPSULE PO SCH (17:10)
[2017-01-21] MEDS: *HR* HYDROcodone/Acet 5/325 mg TABLET PO PRN (20:16)
[2017-01-21] MEDS: ALPRAZolam 0.25 MG TABLET PO SCH (21:34)
[2017-01-21] MEDS: traZODone 50 MG TABLET PO PRN (21:34)
[2017-01-22 04:46] LABS: INR 1.9; Prothrombin Time 20.7 Seconds (9.4-12.1)
[2017-01-22] MEDS: Sucralfate 1 GM TABLET PO SCH ×2 (06:31→15:51)
[2017-01-22] MEDS: predniSONE 20 MG TABLET PO SCH (07:29)
[2017-01-22] MEDS: Aspirin 81 MG TAB.CHEW PO SCH (08:09)
[2017-01-22] MEDS: Isosorbide MONOnitrate (24 HR) 30 MG TAB.ER.24H PO SCH (08:09)
[2017-01-22] MEDS: Furosemide 40 MG TABLET PO SCH ×2 (08:09→17:49)
[2017-01-22] MEDS ORDERED: *HR* Dabigatran 75 MG CAPSULE PO SCH (09:00)
[2017-01-22 11:26] VITALS: BP 104/65
--- NOTE | 2017-01-22 11:29 | Discharge Summary ---
Date of Encounter: 01/22/17 Time of Encounter: 09:20 - Discharge Diagnosis (1) Diplopia Priority: Primary Status: Acute Comments: Possible TIA related to PFO Unlikely temporal artertis Patient reports episode of diplopia that lasted about 12 hours and resolved spontaneously. She has had none since that time. Continue anticoagulation with warfarin( therapeutic now), changed to Pradaxa, INR is 1.9 this a.m. Will be sent home with rx for same. RADHAMES completed today,LVEF 55%, normal systolic function, PFO with evidence of rlight to left shunt, no left to right shunt noted. Mild MR, mild AR, mild- moderate TR. Venous duplex of lower extremities was negative for DVT CT angiogram of the neck and had: The major arteries of the head and neck are within normal limits. Mild prominence of the main pulmonary artery size, may be related to mild pulmonary hypertension. Cannot have an MRI due to pacemaker. ESR was 36, and 5% of the cases of temporal arteritis ESR may be less than 40 Discontinue Prednisone , cancel temporal artery biopsy as outpatient Dr Toribio who has spoken to Dr. Resendiz who will complete a fundoscopic examination at his clinic. Follow-up with rheumatology, Dr. Ambriz. Neurology has been consulted. They saw the patient and recommended echocardiogram, which was completed, results above. CTA of the neck was negative for any carotid stenosis or vertebral stenosis. They do not feel that she has temporal arteritis and that long-term effect of steroids in this age group was something to consider. They have signed off and did not recommend any kind of physical therapy and did not notice any focal motor deficits. Patient was seen by cardiology. They also concur that the diplopia was likely secondary to suspected thromboembolic event. They feel the patient should be changed to Pradaxa from Coumadin since she had an event while on Coumadin. Her stress test is negative, RADHAMES demonstrate a small PFO with left atrial appendage not well visualized. Patient also has history of A. fib. Will continue his work accident, stop Coumadin. Patient currently is in sinus rhythm, rate controlled with diltiazem and beta brandt. She had her pacemaker interrogated , showed runs of A. fib with RVR. Patient has past medical history of CAD with a CABG in 1985 and stent that time. Patient continues to have exertional angina and increasingly limited in ADLs, has increasingly difficult time with stairs. In addition to the aspirin, beta brandt, diltiazem, and Imdur, cardiology has recommended adding a moderate intensity statin, Continue Lipitor. (2) Sedimentation rate elevation Priority: Secondary Status: Resolved (3) On prednisone therapy Priority: Secondary Status: Ruled-out (4) CAD (coronary artery disease) Priority: Secondary Status: Chronic Comments: Continue atenolol and aspirin, Lipitor has been added. He is also on diltiazem and Imdur. Patient denies chest pain. She was normal sinus on monitor and EKG. She has had her pacemaker interrogated showed runs of A. fib without RVR. Qualifiers: Coronary Disease-Associated Artery/Lesion type: bypass graft [place] vs. transplanted heart: [place] heart Associated angina: with stable angina Qualified Code(s): I25.708 - Atherosclerosis of coronary artery bypass graft(s) , unspecified, with other forms of angina pectoris (5) COPD (chronic obstructive pulmonary disease) Priority: Secondary Status: Chronic Comments: No acute exacerbation. Patient has her baseline oxygen demand of 2 L. May titrate to maintain sats greater than 92%. Lungs are clear with adequate aeration throughout. Continue home medications. Qualifiers: COPD type: unspecified COPD Qualified Code(s): J44.9 - Chronic obstructive pulmonary disease, unspecified (6) Atrial fibrillation Priority: Secondary Status: Chronic Comments: Patient with history of A. fib. She is normal sinus rhythm. She is rate controlled with diltiazem and atenolol. Pacemaker was interrogated, she has runs of A. fib without /RVR. Patient was on Coumadin and has been changed to Pradaxa this morning and will be sent home with a prescription for home. Qualifiers: Atrial fibrillation type: paroxysmal Qualified Code(s): I48.0 - Paroxysmal atrial fibrillation (7) DVT prophylaxis Priority: Secondary Status: Acute Comments: Pt on Pradaxa. - Discharge Medications Prescriptions: Dabigatran [Pradaxa] 150 mg PO BID #60 capsule predniSONE [PredniSONE] 60 mg PO DAILY 42 Days tablet Home Medications: ALPRAZolam [Xanax 0.25 MG Tablet] 0.25 mg PO HS 01/17/17 [History] Aspirin [Lo-Dose Aspirin EC] 81 mg PO DAILY 01/17/17 [History] Atenolol [Tenormin] 25 mg PO DAILY 01/17/17 [History] Diltiazem CD (24hr) [Cardizem CD] 120 mg PO QPM 01/17/17 [History] Escitalopram [Lexapro] 10 mg PO DAILY 01/17/17 [History] Furosemide [Lasix] 40 mg PO BID 01/17/17 [History] HYDROcodone/Acet 5/325 mg [[place] 5-325 mg] 1 tab PO Q6H PRN 01/17/17 [History] Isosorbide MONOnitrate (24 HR) [Imdur] 30 mg PO DAILY 01/17/17 [History] Omeprazole [PriLOSEC] 20 mg PO BIDAC 01/17/17 [History] Oxybutynin [Ditropan] 5 mg PO TID 01/17/17 [History] Potassium Chloride [Klor-Con 10] 10 meq PO BID 01/17/17 [History] Sucralfate [Carafate] 1 gm PO BID 01/17/17 [History] traZODone [TraZODone] 50 mg PO HS 01/17/17 [History] predniSONE [PredniSONE] 60 mg PO DAILY 42 Days tablet 01/19/17 [Rx] Dabigatran [Pradaxa] 150 mg PO BID #60 capsule 01/20/17 [Rx] Allergies/Adverse Reactions: 3 Allergy/AdvReac Type Severity Reaction Status Date / Time Sulfa (Sulfonamide Allergy Blister Verified 01/17/17 12:53 Antibiotics) codeine AdvReac Hallucinati Verified 01/17/17 12:54 ng morphine AdvReac Hallucinati Verified 01/17/17 12:54 ng Oxycodone AdvReac Hallucinati Verified 01/17/17 12:53 ng Procedures/tests Complete & Pending: Procedures Performed prior 72 hours Category Date Time Status NM xiomara perf SPECT multi [NM] Routine Exams 01/20/17 11:28 Taken EV RADHAMES transesophageal echo Routine Y 01/21/17 11:25 Completed EV venous imaging LE BI Routine Y 01/20/17 11:01 Completed SP pharm nuclear stress Routine Y 01/21/17 07:00 Completed Date of admission: 01/17/17 19:25 Primary care physician: Chris Quinteros MD Consults: 01/19/17 11:02 Consult to Cardiology [CONS] Routine Comment: Consulting Provider: Cardiology Dariana Reason for Consult: PFO, Spoke to Dr Quiles Call Completed: Yes 01/21/17 11:33 Consult to [employer] [CONS] Routine Reason for SW Consult: home health Discharging clinician: So Burkett Anticipated date of discharge: 01/22/17 - Patient Status Disposition: Home, Self-Care Condition: Good Functional capacity at discharge: independent ambulation - Discharge Instructions Follow Up With: Edward Meyer MD [Partnered Physician] - (Please call office on Friday to schedule follow up appointment.) Chris Quinteros MD [Primary Care Provider] - 01/28/17 12:00 pm (appointment has been webrequested; Our Offices will call you with an update on date and time. Thank You.) Justus Fontaine DO [Partnered Physician] - 02/03/17 3:45 pm Additional Instructions: Follow-up with primary care physician within the next 7 days. Take your Pradaxa as directed. Return to the ER as needed for any other problems or concerns. REturn to your normal activities and diet as tolerated. Resume your other home medications. - Diet and Activity Activity: increase activity as tolerated Diet: advance to your usual diet Interval History: Please see assessment and plan for hospital course. Hospital course: Ms. Anderson is a 81 year old female - Time Spent with Patient Total time spent providing and/or coordinating discharge services: Less than 30 minutes - Constitutional Vitals: Temp Pulse Resp BP Pulse Ox 98.3 F 73 15 105/68 99 01/22/17 07:06 01/22/17 07:06 01/22/17 07:06 01/22/17 07:06 01/22/17 07:06 General appearance: Present: cooperative, A&O X 3, no acute distress, answers questions appropriately - Head Head exam: Present: atraumatic, normal inspection, normocephalic - Eye Eye exam: Present: normal appearance, conjuntiva pink, sclera anicteric - Neck Neck exam general surgery: Present: supple, trachea midline. Absent: lymphadenopathy, tenderness - Respiratory Respiratory exam: Present: CTAB. Absent: accessory muscle use, rales, respiratory distress, rhonchi, wheezes - Cardiovascular Cardiovascular exam: Present: RRR, +S1, +S2. Absent: diastolic murmur, gallop, rubs, systolic murmur - GI/Abdominal GI/Abdominal exam: Present: normal bowel sounds, soft, no peritoneal signs. Absent: distended, hepatomegaly, tenderness - Extremities Exam Extremities exam: Present: normal capillary refill, warm, radial pulses palpable and symmetrical. Absent: calf tenderness, cyanotic, pedal edema, tenderness - Neurological Exam Neurological exam: Present: alert, oriented X3, no focal deficits. Absent: facial droop, speech deficit - Skin Skin exam: Present: dry, intact, normal color, warm. Absent: rash
--- NOTE | 2017-01-22 12:13 | Physician Discharge Referral ---
Home Health/Hosp Referral Info Transfer to: Home Health Provider in Charge Post Discharge: PCP - Diagnosis (1) Diplopia Priority: Primary Status: Acute (2) Sedimentation rate elevation Priority: Secondary Status: Resolved (3) On prednisone therapy Priority: Secondary Status: Ruled-out (4) CAD (coronary artery disease) Priority: Secondary Status: Chronic (5) COPD (chronic obstructive pulmonary disease) Priority: Secondary Status: Chronic (6) Atrial fibrillation Priority: Secondary Status: Chronic (7) DVT prophylaxis Priority: Secondary Status: Acute - Respiratory Orders Smoking Cessation: Smoking cessation has been advised. For more information, call the [place] Tobacco Quit Line at 7-653-WXXB-NOW. - Diet/Nutrition Diet/Nutrition Orders: Regular - Activity Activity Orders: Up ad oly - Services Needed Following services are medically necessary services: Nursing, Home Health Aide, Physical Therapy, Occupational Therapy, Med Social Work, Speech Therapy - Transfer Medications Prescriptions: Dabigatran [Pradaxa] 150 mg PO BID #60 capsule predniSONE [PredniSONE] 60 mg PO DAILY 42 Days tablet Home Medications: ALPRAZolam [Xanax 0.25 MG Tablet] 0.25 mg PO HS 01/17/17 [History] Aspirin [Lo-Dose Aspirin EC] 81 mg PO DAILY 01/17/17 [History] Atenolol [Tenormin] 25 mg PO DAILY 01/17/17 [History] Diltiazem CD (24hr) [Cardizem CD] 120 mg PO QPM 01/17/17 [History] Escitalopram [Lexapro] 10 mg PO DAILY 01/17/17 [History] Furosemide [Lasix] 40 mg PO BID 01/17/17 [History] HYDROcodone/Acet 5/325 mg [[place] 5-325 mg] 1 tab PO Q6H PRN 01/17/17 [History] Isosorbide MONOnitrate (24 HR) [Imdur] 30 mg PO DAILY 01/17/17 [History] Omeprazole [PriLOSEC] 20 mg PO BIDAC 01/17/17 [History] Oxybutynin [Ditropan] 5 mg PO TID 01/17/17 [History] Potassium Chloride [Klor-Con 10] 10 meq PO BID 01/17/17 [History] Sucralfate [Carafate] 1 gm PO BID 01/17/17 [History] traZODone [TraZODone] 50 mg PO HS 01/17/17 [History] predniSONE [PredniSONE] 60 mg PO DAILY 42 Days tablet 01/19/17 [Rx] Dabigatran [Pradaxa] 150 mg PO BID #60 capsule 01/20/17 [Rx] Allergies/Adverse Reactions: 3 Allergy/AdvReac Type Severity Reaction Status Date / Time Sulfa (Sulfonamide Allergy Blister Verified 01/17/17 12:53 Antibiotics) codeine AdvReac Hallucinati Verified 01/17/17 12:54 ng morphine AdvReac Hallucinati Verified 01/17/17 12:54 ng Oxycodone AdvReac Hallucinati Verified 01/17/17 12:53 ng Certification: Further, I certify that my clinical findings support that this patient is homebound (i.e. absences from home require considerable and taxing effort and are for medical reasons or restoration services or infrequently or short duration when for other reasons) because: Homebound Reason: Patient requires assistance of a person or device to safely leave home Attestation: My signature below is to certify that this patient is under my care and that I, or nurse practitioner, or a physician's promotional advertising assistant working with me, has a face-to -face encounter with this patient.
[2017-01-22] MEDS: Diltiazem CD (24hr) 120 MG CAPSULE PO SCH (17:49)
== END 2017-01-22 19:37 | disposition home or self-care (01) | DRG 69 ==
LOC: 3BNU 10:34 → EMEROO 10:34 → 3BNU 14:49 → SUATTDRO 19:25
PROVIDERS: ADMIT Internal Medicine; ATTEND Internal Medicine

== ENCOUNTER 2021-05-01 09:59 | Inpatient (IN) ==
[2021-05-01] MEDS ORDERED: 0.9 % Sodium Chloride 500 ML IVC ONE (10:14)
[2021-05-01] MEDS ORDERED: Ondansetron 4 MG/2 ML VIAL IVP ONE (10:15)
[2021-05-01] MEDS ORDERED: Isovue-370 500 ML BOTTLE IVP ONE (10:15)
[2021-05-01 10:38] LABS: Hematocrit 37.4 % (35.3-44.9); Hemoglobin 12.5 g/dL (11.5-15.4); Immature Granulocytes % 0.6 % (0-4); Lymphocytes % 12.7 %; Mean Corpuscular HGB Conc 33.4 g/dL (31.6-35.5); Mean Corpuscular Hemoglobin 31.3 pg (28.0-33.3); Mean Corpuscular Volume 93.7 fL (83.0-100.0); Mean Platelet Volume 8.6 fL (9.4-12.4); Platelet Count 286 K/mcL (140-400); Red Blood Count 3.99 M/mcL (3.82-4.97); Red Cell Distribution Width 13.2 % (11.5-14.5); Segmented Neutrophils % 73.3 %; White Blood Count 8.9 K/mcL (4.3-11.1)
[2021-05-01 10:39] LABS: Basophils # 0.1 K/mcL (0.0-0.2); Basophils % 0.9 %; Eosinophils # 0.2 K/mcL (0.0-0.6); Eosinophils % 2.2 %; Lymphocytes # 1.1 K/mcL (0.6-4.6); Monocytes # 0.9 K/mcL (0.0-1.3); Monocytes % 10.3 %; Neutrophils # 6.5 K/mcL (1.6-8.9)
[2021-05-01 11:00] LABS: INR 1.6; Prothrombin Time 18.3 Seconds (9.4-12.1)
[2021-05-01 11:03] LABS: Activated Partial Thrombo Time 60.2 Seconds (26.0-36.0)
[2021-05-01 11:06] LABS: BUN/Creatinine Ratio 30 (6-26); Blood Urea Nitrogen 28 mg/dL (8-23); Calcium 9.4 mg/dL (8.6-10.3); Carbon Dioxide 28 mEq/L (23-29); Chloride 99 mEq/L (98-107); Glucose 134 mg/dL (70-105); Lipase 14 Units/L (11-82); Osmolality,Calculated 285 (280-300); Potassium 3.7 mEq/L (3.5-5.1); Sodium 134 mEq/L (136-145); Troponin I 0.18 ng/mL (< 0.04); eGFR For African Americans > 60 (> 60); eGFR For Non-African Americans 57 (> 60)
[2021-05-01 11:25] LABS: Influenza A PCR Negative (Negative); Influenza B PCR Negative (Negative); Resp. Syncytial Virus PCR Negative (Negative); SARS-CoV-2 by PCR (In House) Negative (Negative)
[2021-05-01] MEDS ORDERED: *HR* Heparin 5,000 UNIT/ML VIAL IVP PRN ×4 (12:39→14:49)
[2021-05-01] MEDS ORDERED: *HR* Heparin 5,000 UNIT/ML VIAL IVP ONE (12:39)
[2021-05-01] MEDS ORDERED: Heparin 25,000UNIT/250ML 1/2NS 25,000 UNIT/250 ML IV.SOLN IVC SCH (12:45)
[2021-05-01 13:11] LABS: Hematocrit 38.5 % (35.3-44.9); Hemoglobin 12.9 g/dL (11.5-15.4); Mean Corpuscular HGB Conc 33.5 g/dL (31.6-35.5); Mean Corpuscular Hemoglobin 31.1 pg (28.0-33.3); Mean Corpuscular Volume 92.8 fL (83.0-100.0); Mean Platelet Volume 8.8 fL (9.4-12.4); Platelet Count 270 K/mcL (140-400); Red Blood Count 4.15 M/mcL (3.82-4.97); Red Cell Distribution Width 13.1 % (11.5-14.5); White Blood Count 10.3 K/mcL (4.3-11.1)
[2021-05-01 13:20] LABS: Heparin anti-factor XA UFH < 0.04 IU/mL (0.30-0.70)
[2021-05-01 13:21] LABS: INR 1.6; Prothrombin Time 17.5 Seconds (9.4-12.1)
[2021-05-01] MEDS ORDERED: Morphine Sulfate 2 MG/ML SYRINGE IVP PRN (14:32)
[2021-05-01] MEDS ORDERED: Ondansetron 4 MG/2 ML VIAL IVP PRN (14:32)
[2021-05-01 14:51] LABS: Magnesium 1.9 mg/dL (1.6-2.6)
[2021-05-01] MEDS: Heparin 25,000UNIT/250ML 1/2NS 25,000 UNIT/250 ML IV.SOLN IVC SCH (16:03)
[2021-05-01] MEDS ORDERED: *HR* Promethazine 25 MG/ML VIAL IM ONE (17:17)
[2021-05-01] MEDS ORDERED: *HR* Promethazine 25 MG/ML VIAL IM PRN (17:38)
[2021-05-01 18:57] LABS: Bilirubin,Urine Negative (Negative); Blood,Urine Large (Negative); Clarity,Urine Clear (Clear); Color,Urine Yellow (Yellow); Glucose,Urine (UA) Normal (Normal); Ketones,Urine Negative (Negative); Leukocyte Esterase,Urine Negative (Negative); Mucus,Urine Few per lpf (None-Few); Nitrite,Urine Negative (Negative); Protein,Urine >=300 mg/dL (Neg-Trace); RBC,Urine 30-50 per hpf (0-3); Specific Gravity,Urine > 1.030 (1.010-1.025); Squamous Epithelial Cell,Urine Few per hpf (None-Few); Urobilinogen,Urine Normal (Normal)
[2021-05-02 04:26] LABS: Basophils % 0.3 %; Hemoglobin 13.2 g/dL (11.5-15.4); Immature Granulocytes % 0.7 % (0-4); Lymphocytes # 0.7 K/mcL (0.6-4.6); Lymphocytes % 5.9 %; Mean Corpuscular HGB Conc 33.8 g/dL (31.6-35.5); Mean Corpuscular Hemoglobin 31.9 pg (28.0-33.3); Mean Corpuscular Volume 94.2 fL (83.0-100.0); Mean Platelet Volume 9.2 fL (9.4-12.4); Monocytes % 8.1 %; Platelet Count 309 K/mcL (140-400); Red Blood Count 4.14 M/mcL (3.82-4.97); Red Cell Distribution Width 13.4 % (11.5-14.5); White Blood Count 11.7 K/mcL (4.3-11.1)
[2021-05-02 04:44] LABS: Alanine Aminotransferase 36 Units/L (7-52); Albumin 4.4 g/dL (3.5-5.7); Albumin/Globulin Ratio 1.5 (1.1-2.2); Alkaline Phosphatase 89 Units/L (34-104); Aspartate Amino Transferase 120 Units/L (13-39); BUN/Creatinine Ratio 34 (6-26); Bilirubin,Total 1.2 mg/dL (0.3-1.0); Blood Urea Nitrogen 24 mg/dL (8-23); Calcium 9.5 mg/dL (8.6-10.3); Carbon Dioxide 22 mEq/L (23-29); Chloride 104 mEq/L (98-107); Glucose 171 mg/dL (70-105); Magnesium 2.1 mg/dL (1.6-2.6); Osmolality,Calculated 292 (280-300); Potassium 4.2 mEq/L (3.5-5.1); Sodium 137 mEq/L (136-145); Total Protein 7.4 g/dL (6.4-8.9); eGFR For African Americans > 60 (> 60); eGFR For Non-African Americans > 60 (> 60)
[2021-05-02] MEDS: cefTRIAXone 1,000 MG in 0.9 % Sodium Chloride 10 ML IVP SCH (08:34)
[2021-05-02] MEDS ORDERED: Perflutren Lipid Microsphere 1.3 ML in 0.9 % Sodium Chloride 8.7 ML IVP PRN (08:43)
[2021-05-02] MEDS ORDERED: atenoloL 25 MG TABLET PO SCH (09:00)
[2021-05-02] MEDS ORDERED: Aspirin 81 MG TAB.CHEW PO SCH (09:00)
[2021-05-02] MEDS ORDERED: DilTIAZem CD (24hr) 120 MG CAP.ER.24H PO SCH (09:00)
[2021-05-02] MEDS ORDERED: Furosemide 40 MG/4 ML VIAL ONE (10:41)
[2021-05-02] MEDS ORDERED: Furosemide 40 MG/4 ML VIAL IVP ONE (10:42)
[2021-05-02] MEDS: Nitroglycerin 0.4 MG TAB.SUBL SL PRN ×2 (10:54→11:11)
[2021-05-02] MEDS: Ondansetron 4 MG/2 ML VIAL IVP PRN (13:48)
[2021-05-02] MEDS ORDERED: 0.9 % Sodium Chloride 2,000 ML ONE (14:29)
[2021-05-02] MEDS ORDERED: Heparin 1,000 UNITS/500 mL 500 ML ONE (14:29)
[2021-05-02] MEDS ORDERED: ISOVUE-370 200 ML INFUS..BTL ONE (14:29)
[2021-05-02] MEDS ORDERED: Nitroglycerin 1,000 MCG/5 ML VIAL IV ONE (14:29)
[2021-05-02] MEDS ORDERED: *HR* Heparin 10,000 UNIT/10 ML VIAL ONE ×2 (14:29→15:13)
[2021-05-02] MEDS ORDERED: *HR* FentaNYL (PF) 100 MCG/2 ML VIAL ONE (15:12)
[2021-05-02] MEDS ORDERED: *HR* Midazolam HCl 5 MG/5 ML VIAL IVP ONE (15:13)
[2021-05-02] MEDS ORDERED: 0.9 % Sodium Chloride 1,000 ML ONE (15:13)
[2021-05-02] MEDS: Heparin 25,000UNIT/250ML 1/2NS 25,000 UNIT/250 ML IV.SOLN IVC SCH (19:03)
[2021-05-02] MEDS: Sucralfate 1 GM TABLET PO SCH (21:00)
[2021-05-03] MEDS: Heparin 25,000UNIT/250ML 1/2NS 25,000 UNIT/250 ML IV.SOLN IVC SCH (01:46)
[2021-05-03 03:05] LABS: Hemoglobin 12.5 g/dL (11.5-15.4); Mean Corpuscular HGB Conc 32.9 g/dL (31.6-35.5); Mean Corpuscular Hemoglobin 31.4 pg (28.0-33.3); Mean Corpuscular Volume 95.5 fL (83.0-100.0); Mean Platelet Volume 9.4 fL (9.4-12.4); Platelet Count 269 K/mcL (140-400); Red Blood Count 3.98 M/mcL (3.82-4.97); Red Cell Distribution Width 13.7 % (11.5-14.5); White Blood Count 13.5 K/mcL (4.3-11.1)
[2021-05-03 03:31] LABS: BUN/Creatinine Ratio 36 (6-26); Blood Urea Nitrogen 36 mg/dL (8-23); Calcium 9.3 mg/dL (8.6-10.3); Carbon Dioxide 23 mEq/L (23-29); Chloride 99 mEq/L (98-107); Glucose 93 mg/dL (70-105); Osmolality,Calculated 290 (280-300); Potassium 3.9 mEq/L (3.5-5.1); Sodium 136 mEq/L (136-145); eGFR For African Americans > 60 (> 60); eGFR For Non-African Americans 53 (> 60)
[2021-05-03] MEDS: Aspirin Enteric Coated 81 MG Tablet PO SCH (09:43)
[2021-05-03] MEDS: Metoprolol XL (24 HR) Succ 25 MG TAB.ER.24H PO SCH (09:44)
[2021-05-03] MEDS: Isosorbide MONOnitrate (24 HR) 30 MG TAB.ER.24H PO SCH (09:44)
[2021-05-03] MEDS: Furosemide 40 MG TABLET PO SCH ×2 (09:44→17:20)
[2021-05-03] MEDS: methIMAzole 5 MG TABLET PO SCH (09:44)
[2021-05-03] MEDS: Sucralfate 1 GM TABLET PO SCH ×2 (09:44→19:41)
[2021-05-03] MEDS: cefTRIAXone 1,000 MG in 0.9 % Sodium Chloride 10 ML IVP SCH (09:45)
[2021-05-03] MEDS: Ondansetron 4 MG/2 ML VIAL IVP PRN (17:25)
[2021-05-04 05:11] LABS: Hematocrit 36.1 % (35.3-44.9); Hemoglobin 11.8 g/dL (11.5-15.4); Mean Corpuscular HGB Conc 32.7 g/dL (31.6-35.5); Mean Corpuscular Hemoglobin 31.2 pg (28.0-33.3); Mean Corpuscular Volume 95.5 fL (83.0-100.0); Mean Platelet Volume 9.4 fL (9.4-12.4); Platelet Count 216 K/mcL (140-400); Red Blood Count 3.78 M/mcL (3.82-4.97); Red Cell Distribution Width 13.7 % (11.5-14.5); White Blood Count 10.9 K/mcL (4.3-11.1)
[2021-05-04 05:30] LABS: BUN/Creatinine Ratio 35 (6-26); Blood Urea Nitrogen 29 mg/dL (8-23); Calcium 8.3 mg/dL (8.6-10.3); Carbon Dioxide 24 mEq/L (23-29); Chloride 102 mEq/L (98-107); Glucose 104 mg/dL (70-105); Osmolality,Calculated 284 (280-300); Potassium 3.3 mEq/L (3.5-5.1); Sodium 134 mEq/L (136-145); eGFR For African Americans > 60 (> 60); eGFR For Non-African Americans > 60 (> 60)
[2021-05-04] MEDS: Metoprolol XL (24 HR) Succ 25 MG TAB.ER.24H PO SCH (07:28)
[2021-05-04] MEDS: methIMAzole 5 MG TABLET PO SCH (07:30)
[2021-05-04] MEDS: Sucralfate 1 GM TABLET PO SCH ×2 (07:30→20:01)
[2021-05-04] MEDS: Isosorbide MONOnitrate (24 HR) 30 MG TAB.ER.24H PO SCH (07:30)
[2021-05-04] MEDS: Furosemide 40 MG TABLET PO SCH ×2 (07:31→17:51)
[2021-05-04] MEDS: Aspirin Enteric Coated 81 MG Tablet PO SCH (07:31)
[2021-05-04] MEDS: cefTRIAXone 1,000 MG in 0.9 % Sodium Chloride 10 ML IVP SCH (07:32)
[2021-05-04] MEDS: *HR* Dabigatran 150 MG CAPSULE PO SCH ×2 (09:21→20:01)
[2021-05-04] MEDS: Acetaminophen 325 MG TABLET PO PRN (17:50)
[2021-05-05] MEDS: Isosorbide MONOnitrate (24 HR) 30 MG TAB.ER.24H PO SCH (08:34)
[2021-05-05] MEDS: methIMAzole 5 MG TABLET PO SCH (08:34)
[2021-05-05] MEDS: Metoprolol XL (24 HR) Succ 25 MG TAB.ER.24H PO SCH (08:34)
[2021-05-05] MEDS: *HR* Dabigatran 150 MG CAPSULE PO SCH (08:35)
[2021-05-05] MEDS: Sucralfate 1 GM TABLET PO SCH (08:35)
[2021-05-05] MEDS: Furosemide 40 MG TABLET PO SCH ×2 (08:35→17:22)
[2021-05-05] MEDS ORDERED: lisinopriL 5 MG TABLET PO SCH (09:00)
[2021-05-05 10:11] VITALS: TEMP 98.2
[2021-05-05] MEDS: Acetaminophen 325 MG TABLET PO PRN (10:42)
[2021-05-05 15:51] VITALS: BP 118/76; PULSE 83; O2SAT 95
== END 2021-05-05 19:32 | DRG 280 ==
LOC: EMEROOARM 09:59 → 3BNU 09:59 → SUATTDRO 05-02 11:36 → 2NNU 05-02 13:15 → 2NENU 05-03 16:03
PROVIDERS: ADMIT Family Medicine; ATTEND Internal Medicine